=== PATIENT | female | born 1990 | race Caucasian/White ===

== ENCOUNTER → 2018-12-07 11:38 | Outpatient (CLI) | payer OTHER, SELFPAY ==
[2018-12-07 11:18] VITALS: BMI 25.7
[2018-12-07 12:35] LABS: hCG Titer Quant., Serum 94 mIU/mL (<9 non-preg)
--- OUTSIDE RECORDS SUMMARY | 2019-02-08 22:56 | XMS RPT_ITS ---
:1990 Author Organization OHIP Support Name Relationship Address Phone JOCELINEKRISTYN Unavailable [address] + [place] [address] [facility], [address] + [place] [address] DR FREITAS Unavailable [address] + [place] [address] KRISTYN CAR Unavailable [address] + [place] [address] [facility], [address] + [place] [address] DR FREITAS Unavailable [address] + [place] [address] KRISTYN CAR Unavailable [address] + [place] [address] [facility], [address] + [place] [address] DR FREITAS Unavailable [address] + [place] [address] KRISTYN CAR Unavailable [address] + [place] [address] [facility], [facility] Unavailable [address] + [place] [address] DR FREITAS Unavailable [address] + [place] [address] KRISTYN CAR Unavailable [address] + [place] [address] [facility], CARLOS Unavailable [address] + [place] [address] DR FREITAS Unavailable [address] + [place] [address] [facility] Un[address] [place] [address] [place] [address] KRISTYN CAR Unavailable [address] + [place] [address] [facility] Unavailable [address] + [place] [address] [facility] Un[address]- [place] [address] KRISTYN CAR Unavailable [address] + [place] [address] [facility], [facility] Unavailable [address] + [place] [address] Care Team Providers Name Role Phone Adeel, Rossy Attending Unavailable [place], Jericho Referring Unavailable Adeel, Rossy Attending Unavailable Hesperia, Rossy Referring Unavailable [place], Jericho Primary Care Unavailable Chris Joseph Attending Unavailable [place], Jericho Referring Unavailable [place], Jericho Primary Care Unavailable [place], Rossy Attending Unavailable Adeel, Rossy Referring Unavailable [place], Jericho Primary Care Unavailable Marcanthony, Kristi Attending Unavailable Marcanthony, Kristi Referring Unavailable [place], Jericho Primary Care Unavailable [place], Rossy Attending Unavailable [place], Rossy Referring Unavailable [place], Jericho Primary Care Unavailable Marcanthony, Kristi Attending Unavailable [place], Jericho Referring Unavailable [place], Jericho Primary Care Unavailable PROBLEMS PROBLEMS No Problem Records FoundPROCEDURES PROCEDURES No Procedure Records FoundRESULTS RESULTS CBC W/DIFF, AUTOMATED Collected: 12/11/2018 Status: F Source: [place] 11:36 AM [facility] RE[facility] TYPE CODE TESTS RESULT OUT OF RANGE REFERENCE UNITS LAB L100.1000 4.4-11.0 K/mm3 Normal WBC 7.0 LAB L100.1200 4.2-5.4 M/mm3 Normal RBC 4.44 LAB L100.1300 12.0-15.0 g/dl Normal HGB 13.6 LAB L100.1400 37-47 % Normal HCT 41.4 LAB L100.1500 81-99 fL Normal MCV 93.2 LAB L100.1600 27.0-32.0 pg Normal MCH 30.6 LAB L100.1700 32-36 g/gl Normal MCHC 32.9 LAB L100.1810 11.6-14.6 % Normal RDW CV 12.8 LAB L100.1820 35.1-43.9 fl Normal RDW SD 43.6 LAB L100.1900 150-450 K/mm3 Normal PLT 256 LAB L100.2000 6.2-12.0 fl Normal MPV 10.3 LAB L100.2100 47-70 % Normal NEUT% 59.1 LAB L100.2200 19-41 % Normal LY% 30.4 LAB L100.2300 0-10 % Normal MONO% 6.8 LAB L100.2400 0-5 % Normal EO% 3.3 LAB L100.2500 0-1 % Normal BASO% 0.3 LAB L100.2550 0.0-0.9 % Normal IM GRAN % 0.100 Result Comment: IG% - Immature Granulocytes (promyelocytes, myelocytes and metamyelocytes) > 1% indicates that a LEFT SHIFT is Present. LAB L100.2620 2.0-7.7 X10 3/uL Normal Absolute Neut 4.2 LAB L100.2720 0.83-4.51 X10 3/ul Normal Absolute Lymph 2.14 Performed By: #### L100.0100 #### [facility] [address] [place], [address] HCG TITER QUANT., Collected: 12/11/2018 Status: F Source: [place] 11:36 AM [facility] REPOSITORY TYPE CODE TESTS RESULT OUT OF RANGE REFERENCE UNITS LAB L700.8000 <9 non-preg mIU/mL High HCG 96 QUANT. Performed By: #### L700.8000 #### [facility] [place], [address] TYPE AND SCREEN Collected: 12/11/2018 Status: F Source: [place] 11:36 AM [facility] REPOSITORY Order Comment: Reason for Type AND Screen/Red Cells: TYPE CODE TESTS RESULT OUT OF RANGE REFERENCE UNITS LAB B10.0800 A Normal BLOOD TYPE GEL POSITIVE LAB B100.4000 Normal Antibody NEGATIVE Screen Performed By: #### B101.7450 #### [facility] [place], [address] TRANSVAGINAL W/PREG US Observed: 12/10/2018 Status: F Source: [place] 1:26 PM [facility] REPOSITORY [facility] Imaging Services [address] [place] [address] Transvaginal w/Preg US MR#: [id number] Acct: [id number] Name: TONO CAR Rep #: [id number] : 1990 F 28 From: Stephen Pedro MD PCP: Jericho Chen MD Status: REG CLI Study: Transvaginal w/Preg US Date of Exam: 12/10/18 Exam# [id number] Ordering Dr: Rossy Denis NP-Fabiana STUDY: FIRST TRIMESTER OBSTETRICAL ULTRASOUND REASON FOR EXAM: Female, 28 years old. Bleeding. LMP: Unknown. TECHNIQUE: Transabdominal and Transvaginal TECHNICAL QUALITY: Adequate. PRIOR ULTRASOUND: None. FINDINGS: There is no demonstrated intrauterine gestational sac. There is no demonstrated yolk sac. The placenta is non-visualized. There is no demonstrated embryo ( pole The uterus measures 4.7 cm x 4.8 cm x 2.6 cm. The endometrium is fluid distended and measures 6 mm. No gestational sac is seen. Low-level echoes are seen within the endometrium.. There is no demonstrated uterine fibroid. The cervix is closed. The right ovary measures 1.5 cm x 1.8 cm x 1.0 cm. A dominant follicle is seen within measuring 9.2 mm. There is no visualized right adnexal mass or complex lesion. The left ovary measures 2.6 cm x 1.8 cm x 1.0 cm. There is no left ovarian cyst. There is no visualized left adnexal mass or complex lesion. There is no fluid in the cul de sac. US/Transvaginal w/Preg US IMPRESSION: No intrauterine gestational sac is seen. Findings suggestive of spontaneous with residual fluid and debris in the endometrial cavity. Electronically Signed: Stephen Pedro MD at 14:24 EST , Service support , CC: SANDRITA Denis; Jericho Chen MD Search Engine Optimization Consultant: Signed HCG TITER QUANT., Collected: 12/09/2018 Status: F Source: [place] SERUM 11:40 AM [facility] REPOSITORY TYPE CODE TESTS RESULT OUT OF RANGE REFERENCE UNITS LAB L700.8000 <9 non-preg mIU/mL High HCG 113 QUANT. Performed By: #### L700.8000 #### [facility] [address] [place], [address] HCG TITER QUANT., Collected: 12/07/2018 Status: F Source: [place] SERUM 11:44 AM [facility] REPOSITORY TYPE CODE TESTS RESULT OUT OF RANGE REFERENCE UNITS LAB L700.8000 <9 non-preg mIU/mL High HCG 94 QUANT. Performed By: #### L700.8000 #### [facility] [address] 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 [place] [address] OFFICE VISIT Date of Service: 12/07/18 MR#: [id number] Acct: [id number] Name: TONO CAR Rep #: [id number] : 1990 Provider: SANDRITA Denis Age/Sex: 28/F [place] [facility] [place] [place] Signed Intake Vital Signs12/07/18 Height 5 ft 3 in 12/07/18 Weight: 145 lb 8 oz 12/07/18 Body Mass Index (BMI) 25.7 12/07/18 Blood Pressure 124/70 H Intake Visit Reasons: CRAMPING/passed a clot Chief Complaint: Irregular bleeding, cramping Professor Of Rhetoric Required: No Is patient in pain?: No Allergies morphine Adverse Reaction (Verified 12/07/18 11:19) Other Medications etonogestrel-ethinyl estradiol 0.12 mg -0.015 mg/24 hr vaginal ring 1 vag ring VAGINAL Q4W #3 ea 07/16/18 [Rx Confirmed 12/07/18] Is last menstrual period known: No Post menopausal: No Patient : No : No PFSH Family History Grandmother Breast cancer Social History Smoking Status: Never smoker alcohol intake: current alcohol intake frequency: a few times a month Alcohol type: beer details: socially substance use type: does not use caffeine: Yes what type of physical activity do you participate in: weight training frequency: 3-4 times per week seatbelt use: always do you feel safe at home: Yes 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 Looked up online and feels was desidual cast. States normal menses today/changing pad every 3 hours. She is on nuvaring and started menses 12/04. She was trying to do continuous cycling but has break through bleeding. Pregancy History 0 Elective abortions Hx Para Spontaneous abortions ROS Const Constitutional: Reports system reviewed and no additional complaints, except as docu GI GI: Denies abdominal pain or change in bowel habits : Reports as per HPI Exam Const General: cooperative, no acute distress Nutritional Appearance: average body habitus Orientation: oriented x3 Neck Neck: normal visual inspection Resp Effort AND Inspection: normal respiratory effort Skin General: no rashes or lesions noted Assessment AND Plan Problems 1. Irregular menses N92.6 Plan Deferred pelvic exam since menses very light Urine HCG with very faint positive line, will check HCG quant. Will call her with results later today. Call if increased bleeding. 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 [place] [address] OFFICE VISIT Date of Service: 02/06/18 MR#: [id number] Acct: [id number] Name: TONO CAR Rep #: [id number] : 1990 Provider: Kristi Oseguera MD Age/Sex: 28/F [place] [facility] [place]: S[place] Intake Vital Signs02/06/18 Height 5 ft 3 in 02/06/18 Weight: 153 lb 2 oz 02/06/18 Body Mass Index (BMI) 27.1 02/06/18 Blood Pressure 114/76 Intake Visit Reasons: ANNUAL JV PT Professor Of Rhetoric Required: No Is patient in pain?: No Allergies morphine Adverse Reaction (Verified 02/06/18 09:18) Other Medications omega 2-rbl-wrg-fish oil 1,000 mg (120 mg-180 mg) capsule cap PO 01/14/18 [History Confirmed 02/06/18] vitamin,calcium,qhgpbqhk-oabw-lgjkr acid tablet 1 tab PO QDAY 01/14/18 [History Confirmed 02/06/18] Is last menstrual period known: Yes Last Menstral Period: 01/26/18 Post menopausal: No Patient : No : No PFSH Family History Grandmother Breast cancer Social History Smoking Status: Never smoker alcohol intake: current alcohol intake frequency: a few times a month Alcohol type: beer details: socially substance use type: does not use caffeine: Yes what type of physical activity do you participate in: weight training frequency: 3-4 times per week seatbelt use: always do you feel safe at home: Yes 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 Last PAP: last year History of abnormal PAP: no off control since august Female Reproductive History Last Menstral Period: 01/26/18 Cycle Length: 21-35 Bleeding Duration: 5 Control Method: none associated symptoms: none Questions: Metorrhagia: No, Sexually active: Yes, Dyspareunia: No, PCB: No Menopausal Symptoms: No hot flashes, No night sweats, No weight change, No mood changes, No difficulty concentrating, No sleep problems, No change in libido ROS Const Constitutional: Reports as per HPI; denies poor appetite, fatigue, increased appetite, weight gain, weight loss or night sweats Cardio Card: Denies chest pain Resp Resp: Denies dyspnea or cough GI GI: Reports as per HPI; denies bloating, abdominal pain, constipation, vomiting or nausea : Reports as per HPI and other; denies blood in urine, vaginal odor, vaginal itching, vaginal dryness, vaginal discharge, urinary urgency, urinary incontinence, urinary frequency, pelvic pain, painful urination, difficulty urinating, prolapse symptoms, nipple discharge or hot flashes Skin Skin/Breast: Denies breast pain, breast skin changes, nipple discharge, breast lump or changing lesions Psych Psych: Denies difficulty concentrating or change in sex drive Exam Const General: cooperative, healthy appearing, comfortable, no acute distress, well developed, well groomed [facility] Head: normal to inspection, normocephalic Ears: hearing grossly normal bilaterally, external ears normal Nose: external nose normal Face and sinus: normal facial exam Neck Neck: normal visual inspection, full ROM, no lymphadenopathy Thyroid: thyroid normal Chest Chest palpation AND inspection: normal inspection of the chest Breast inspection: normal inspection of the breasts, normal inspection of the axillae Breast palpation: normal palpation of the breasts, normal palpation of the axillae, no axillary lymphadenopathy Resp Effort AND Inspection: normal respiratory effort GI Inspection: normal to inspection, non-distended Palpation: no guarding, soft, no hepatosplenomegaly General: bladder normal to palpation External Female Exam: normal external appearance, normal appearance of the urethra, no lesions Urethra: normal appearance of the urethra, normal palpation Speculum Exam - Vagina: normal appearance of the vagina, normal vaginal discharge Speculum Exam - Cervix: normal appearance of the cervix, no cervical discharge, no lesions, nontender Bimanual Exam- Vagina AND Uterus: No cervical tenderness, normal bimanual exam, uterine size normal, bladder normal to palpation, uterine mobility normal, uterine consistency normal, uterus non-tender, no cervical motion tenderness Bimanual Exam- Adnexa, other: normal adnexae, no adnexal masses, adnexae non-tender Skin General: no rashes or lesions noted Neuro General: alert, moves all extremities, no focal motor deficits Extrem General: no pedal edema, normal to inspection Psych Appearance: grossly normal Mental Status: mental status grossly normal Affect: normal affect Speech and Movement: speech and movement normal Attitude: cooperative Assessment AND Plan Problems 1. Encounter for gynecological examination without abnormal finding Z01.419 Plan Cervical cancer screening: up to date Breast cancer screening: clinical STD prevention and contraceptive options including their risks, benefits, and alternatives were reviewed with the patient and she chooses: none Encouraged maintenance of a healthy weight and active lifestyle and handout given. Calcium/vitamin D recommendations provided. Annual exam handout including recommendations for good health guidelines and basic screening information given. Problem list up to date, see problem list details for any additional plan information. follow up in one year for annual health maintenance exam or sooner if needed. Coding Level of Care Code Off vis,new,prev 18-39yrs Diagnoses Encounter for gynecological examination without abnormal finding Z01.419 Gynecological examination findings: abnormal findings ABSENT 02/08/182201 <Electronically signed by Kristi Oseguera MD> Date Kristi Oseguera MD Cosigner Signature: Date (if applicable) CC: URGENT CARE VISIT Observed: 01/14/2018 Status: F Source: [place] REPORT 8:53 AM [facility] Now [address] [id number] OFFICE VISIT Date of Service: 01/14/18 MR#: [id number] Acct: [id number] Name: TONO CAR Rep #: [id number] : 1990 Provider: Chris ESPINOZA Age/Sex: 27/F Location: [facility] [place] Status: Signed Intake Vital Signs01/14/18 Height 5 ft 3 in Intake Visit Reasons: SINUS/HEAD COLD Chief Complaint: Nasal congestion and postnasal drip Is patient in pain?: No Allergies morphine Adverse Reaction (Verified 01/14/18 06:54) Other Medications omega 3-nbp-vfr-fish oil 1,000 mg (120 mg-180 mg) capsule cap PO 01/14/18 [History Confirmed 01/14/18] vitamin,calcium,meawnexe-mpau-akhkc acid tablet 1 tab PO QDAY 01/14/18 [History Confirmed 01/14/18] PFS Social History Smoking Status: Never smoker alcohol intake: current alcohol intake frequency: a few times a month Alcohol type: beer HPI HPI Chief Complaint: Nasal congestion and postnasal drip Details: TONO CAR, is a 27 F who presents to the office today for initial evaluation approximately 3 day history of progressively worsening postnasal drip and nasal congestion and new onset cough over the last 24 hours. Patient notes no complaints of fever, chills, sweats, rash, chest pain/shortness of breath. She notes she feels that her cough is from irritation due to postnasal drainage. She has when she blows her nose is watery clear. She notes over the counter DayQuil relieves her symptoms minimally. She notes no aggravating factors. She notes no other associated symptoms she is non-smoker. ROS Const Constitutional: No excessive sweating, abnormal sleep pattern, chills, fever(s), night sweats or body ache Eyes Eyes: No change in vision ENT ENT: Positive for post nasal drip and nasal congestion; no abnormal hearing, ear pain, ear discharge, ear pressure, hearing loss, sinus pressure or sore throat Resp Respiratory: Positive for cough Cough: Yes non-productive; no chest congestion Cardio Cardiology: No excessive sweating, chest pain at rest, chest pain with exertion, shortness of breath, dyspnea on exertion, irregular heart rhythm, generalized swelling or leg pain with exertion Gastro GI: No abdominal pain, change in stool character or change in bowel habits Musc Musculoskeletal: No joint pain, back pain or limited range of motion Skin Skin: No change in hair or sores Neuro Neurology: No abnormal hearing, abnormal speech or abnormal movements Psych Psychiatric: No abnormal sleep pattern Endo Endocrine: No excessive sweating, change in body appearance, cold intolerance or heat intolerance Aller/Imm Allergy/Immunologic: No food intolerance Solomon/Lymp Hematologic/Lymphatic: No easy bruising Exam Const General: cooperative, healthy appearing, no acute distress, comfortable Nutritional Appearance: average body habitus Orientation: alert, awake, oriented x3 HENPA Head: normal to inspection Ears: hearing grossly normal bilaterally, external ears normal, TM's normal bilaterally, EAC's normal Nose: external nose normal, nares normal, septum normal, nasal discharge clear Face and sinus: normal facial exam, sinuses nontender Mouth: tongue normal, lip normal, oropharynx normal, oral mucosae normal Teeth and gingiva: dentition normal, gingiva normal Throat: uvula midline, tonsils normal, posterior oropharynx normal Eyes General: appearance normal, both eyes and all related structures Neck Neck: normal visual inspection, full ROM, no lymphadenopathy, no meningeal signs, supple Neck mass: No Thyroid: thyroid normal Lymphatic: no lymphadenopathy noted Chest Chest palpation AND inspection: normal inspection of the chest Resp Effort AND Inspection: normal respiratory effort, able to speak in complete sentences, symmetric chest movement, no cough (No unsolicited cough appreciated during today's exam.) Auscultation: Bilateral: Clear to Auscultation Cardio Palpation: normal PMI Rate: regular rate Rhythm: regular rhythm Heart Sounds: S1 normal, S2 normal, no gallops, no murmurs, no rubs Pulses: radial pulses present GI Inspection: normal to inspection Skin General: no rashes or lesions noted Neuro General: alert, awake, oriented x3, gait normal Cognition: normal cognition Speech: speech normal Gait: normal gait Motor: muscle tone normal throughout Sensory Exam: no sensory deficits noted Extrem General: normal to inspection Psych Appearance: grossly normal Mental Status: mental status grossly normal Mood: congruent mood Affect: normal affect Speech and Movement: speech and movement normal Attitude: cooperative Thought Process: normal Thought Content: normal Judgment: judgment good Assessment AND Plan Problems 1. URI (upper respiratory infection) J06.9 Plan Reviewed today's examination findings with patient in office today. Clear fluids, rest, Advil/Tylenol/Claritin-D lujo-lde-xeyknpc as needed for symptomatic relief. Follow-up with PCP in 5 7 days should symptoms not improve, sooner should symptoms worsen or any other concerns develop. Patient states acknowledging understanding all the above. This note was generated with [employer] software. It may contain incorrect words, spelling, and punctuation that were not noted in checking the note before signing. Medications Discontinued: Coding Level of Care Code Off vis,new,level 3 Diagnoses URI (upper respiratory infection) J06.9 01/14/18 0853 <Electronically signed by Chris ESPINOZA> Date Chris ESPINOZA Cosigner Signature: Date (if applicable) CC: ALLERGIES ALLERGIES DATE TYPE / CODE NAME / CODE REACTION SEVERITY SOURCE 12/07/2018 Drug morphine/F00 Other Unknown Alyssa [facility] Allergy/4160 [id number]([facility] [address](SNOMED RM) Repository CT) ENCOUNTERS ENCOUNTERS ADMIT/DISCHARGE ACCOUNT ADMITTING ENCOUNTER LOCATION SOURCE NUMBER CLASS 12/11/2018 [id number] Ambulatory Alyssa Alyssa 9 [facility] ing:PAVLAB Repository 12/10/2018 [id number] Ambulatory [place] Alyssa 0 [facility] ing:OPUS Repository 12/09/2018 [id number] Ambulatory Alyssa [place] 6 [facility] ing:PAVLAB Repository 12/07/2018 [id number] Ambulatory [place] Alyssa 5 [facility] ing:PAVLAB Repository 12/07/2018/ [id number] Ambulatory BMSBuilding:B [place] 9 4 [facility] Repository 02/06/2018/ [id number] Ambulatory BMSBuilding:B [place] 8 2 [facility] Repository 01/14/2018/ [id number] Ambulatory BMSBuilding:B [place] 8 2 [facility] Repository PAYERS PAYERS ENCOUNTER GUARANTOR PAYER SUBSCRIBER SOURCE 12/11/2018 KRISTYN Dent Primary KRISTYN [id number] Insurance:MEDICAL COCHRELLDOB[facility] [id number] [address]Xha: Number: Repository [id number] (HP) Date:[id number] [address] [address]SB: 12/11/2018 Secondary NOT GIVENUNK Alyssa Insurance:SELF PAY [facility] Number: Effective Repository Date:2018-12-11 12/10/2018 ROSS D Primary ROSS D Alyssa [id number] Insurance:MEDICAL COCHRELLDOB: [place] [address]Tel: Number: Repository [id number] (HP) Date:3135-05-38KO [place] [id number]: 12/10/2018 Secondary NOT GIVENUNK Alyssa Insurance:SELF PAY [facility] Number: Effective Repository Date:2018-12-09 12/09/2018 ROSS D Primary ROSS D Alyssa [id number] Insurance:MEDICAL COCHRELLDOB: [place] [address]Tel: Number: Repository [id number] (HP) Date:[id number] [address] [address]WT: 12/09/2018 Secondary NOT GIVENUNK [place] Insurance:SELF PAY [facility] Number: Effective Repository Date:2018-12-09 12/07/2018 ROSS D Primary ROSS D Alyssa [id number] Insurance:MEDICAL COCHRELLDOB: [place] [address]Tel: Number: Repository [id number] (HP) Date:4583-08-20KH [address] [address]LI: 12/07/2018 Secondary NOT GIVENUNK Alyssa Insurance:SELF PAY [facility] Number: Effective Repository Date:2018-12-07 12/07/2018 Ross D Primary Ross D [place] [id number] Insurance:MEDICAL CochrellDOB: [address] [address]Ycq: Number: Repository [id number] (HP) Date:6458-19-78PI [address] [address]ZZ: 12/07/2018 Secondary NOT GIVENUNK Alyssa Insurance:SELF PAY [facility] Number: Effective Repository Date:2018-12-07 02/06/2018 Ross D Primary Ross D Homer [id number] Insurance:MEDICAL CochrellDOB: [address] [address]Wzc: Number: Repository [id number] (HP) Date:[id number] [address] [address]PE: 02/06/2018 Secondary NOT GIVENUNK Alyssa Insurance:SELF PAY [facility] Number: Effective Repository Date:2018-02-06 01/14/2018 Ross D Primary Ross D Alyssa [id number] Insurance:MEDICAL CochrellDOB: [address] [address]Ihw: Number: Repository [id number] (HP) Date:[id number] [address] [address]DD: 01/14/2018 Secondary NOT GIVENUNK Alyssa Insurance:SELF PAY [facility] Number: Effective Repository Date:2018-01-14
== END ==
PROVIDERS: Referring Provider Nurse Practitioner Women's Health; Visit Provider Nurse Practitioner Women's Health
DX: O20.9 Hemorrhage in early pregnancy, unspecified (principal); Z3A.00 Weeks of gestation of pregnancy not specified
CPT/HCPCS: 36415; 84702

== ENCOUNTER → 2018-12-09 11:36 | Outpatient (CLI) | payer OTHER, SELFPAY ==
[2018-12-07 11:18] VITALS: BMI 25.7
[2018-12-09 12:42] LABS: hCG Titer Quant., Serum 113 mIU/mL (<9 non-preg)
--- OUTSIDE RECORDS SUMMARY | 2019-02-10 09:32 | XMS RPT_ITS ---
:1990 Author Organization OHIP Support Name Relationship Address Phone JOCELINEKRISTYN Unavailable [address] + [place] [address] [facility], [address] + [place] [address] DR FREITAS Unavailable [address] + [place] [address] KRISTYN CAR Unavailable [address] + [place] [address] [facility], [address] + [place] [address] DR FREITAS Unavailable [address] + [place] [address] KRISTYN CAR Unavailable [address] + [place] [address] [facility], [address] + [place] [address] DR FREITAS Unavailable [address] + [place] [address] KRISTYN CAR Unavailable [address] + [place] [address] [facility], NOV Unavailable [address] + [place] [address] DR FREITAS Unavailable [address] + [place] [address] KRISTYN CAR Unavailable [address] + [place] [address] [facility], CARLOS Unavailable [address] + [place] [address] DR FREITAS Unavailable [address] + [place] [address] [facility] Un[address]- [place] [address] KRISTYN CAR Unavailable [address] + [place] [address] [facility], [facility] Unavailable [address] + [place] [address] [facility] Un[address]- [place] [address] KRISTYN CAR Unavailable [address] + [place] [address] [facility], [facility] Unavailable [address] + [place] [address] Care Team Providers Name Role Phone Rossy Denis Attending Unavailable [place], Rossy Referring Unavailable [place], Jericho Primary Care Unavailable Adeel, Rossy Attending Unavailable Adeel, Rossy Referring Unavailable [place], Jericho Primary Care Unavailable Marcanthony, Kristi Attending Unavailable [place], Jericho Referring Unavailable [place], Jericho Primary Care Unavailable Chris Joseph Attending Unavailable [place], Jer[place]o Referring Unavailable [place], Jericho Primary Care Unavailable Marcanthony, Kristi Attending Unavailable Marcanthony, Kristi Referring Unavailable [place], Jericho Primary Care Unavailable [place], Rossy Attending Unavailable Adeel, Rossy Referring Unavailable [place], Jericho Primary Care Unavailable Adeel, Rossy Attending Unavailable [place], Jericho Referring Unavailable PROBLEMS PROBLEMS No Problem Records FoundPROCEDURES PROCEDURES No Procedure Records FoundRESULTS RESULTS CBC W/DIFF, AUTOMATED Collected: 12/11/2018 Status: F Source: [place] 11:36 AM [facility] REPOSITORY TYPE CODE TESTS RESULT OUT OF [...] Lymph 2.14 Performed By: #### L100.0100 #### [facility] [address] [place], [address] HCG TITER QUANT., Collected: 12/11/2018 Status: F Source: [place] 11:36 AM [facility] REPOSITORY TYPE CODE TESTS RESULT OUT OF RANGE REFERENCE UNITS LAB L700.8000 <9 non-preg mIU/mL High HCG 96 QUANT. Performed By: #### L700.8000 #### [facility] [place], [address] TYPE AND SCREEN Collected: 12/11/2018 Status: F Source: [place] 11:36 AM [facility] REPOSITORY Order Comment: Reason for Type AND Screen/Red Cells: TYPE CODE TESTS RESULT OUT OF RANGE REFERENCE UNITS LAB B10.0800 A Normal BLOOD TYPE GEL POSITIVE LAB B100.4000 Normal Antibody NEGATIVE Screen Performed By: #### B101.7450 #### [facility] [place], [address] TRANSVAGINAL W/PREG US Observed: 12/10/2018 Status: F Source: [place] 1:26 PM [facility] REPOSITORY [facility] Imaging Services [address] [place] [address] Transvaginal w/Preg US MR#: [id number] Acct: [id number] Name: TONO CAR Rep #: [id number] : 1990 F 28 From: Stephen Pedro MD PCP: Jericho Chen MD Status: REG CLI Study: Transvaginal w/Preg US Date of Exam: 12/10/18 Exam# [id number] Ordering Dr: Rossy Denis NP-Fabiana STUDY: FIRST [...] , CC: SANDRITA Denis; Jer[place]o Chen MD 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 Performed By: #### L700.8000 #### [facility] [address] [place], [address] HCG TITER QUANT., Collected: 12/07/2018 Status: F Source: [place] SERUM 11:44 AM [facility] REPOSITORY TYPE CODE TESTS RESULT OUT OF RANGE REFERENCE UNITS LAB L700.8000 <9 non-preg mIU/mL High HCG 94 QUANT. Performed By: #### L700.8000 #### [facility] [address] 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 [place] [address] OFFICE VISIT Date of Service: 02/06/18 MR#: [id number] Acct: [id number] Name: TONO CAR Rep #: [id number] : 1990 Provider: Kristi Oseguera MD Age/Sex: 28/F [place] [facility] [place]: Signed Intake Vital Signs02/06/18 Height 5 ft 3 in 02/06/18 Weight: 153 lb 2 oz 02/06/18 Body Mass Index (BMI) 27.1 02/06/18 Blood Pressure 114/76 Intake Visit Reasons: ANNUAL JV PT Silo Operator Required: No Is patient in pain?: No Allergies morphine Adverse Reaction (Verified 02/06/18 09:18) Other Medications omega 4-npb-glb-fish oil 1,000 mg (120 mg-180 mg) capsule cap PO 01/14/18 [History Confirmed 02/06/18] vitamin,calcium,vkdcvgdr-hcuo-qpudp acid tablet 1 tab PO QDAY 01/14/18 [...] home: Yes 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 0 [...] no acute distress, well developed, well groomed [facility] Head: normal to inspection, normocephalic Ears: [...] Status: F Source: [place] REPORT 8:53 AM [facility] Now [address] [address] OFFICE VISIT Date of Service: 01/14/18 MR#: [id number] Acct: [id number] Name: TONO CAR Rep #: [id number] : 1990 Provider: Chris ESPINOZA Age/Sex: 27/F Location[place] [facility] [place] Status: Signed Intake Vital Signs01/14/18 Height 5 ft 3 in Intake Visit Reasons: SINUS/HEAD COLD Chief Complaint: Nasal congestion and postnasal drip Is patient in pain?: No Allergies morphine Adverse Reaction (Verified 01/14/18 06:54) Other Medications omega 6-uwl-olm-fish oil 1,000 mg (120 mg-180 mg) capsule cap PO 01/14/18 [History Confirmed 01/14/18] vitamin,calcium,njwjdfsz-xudi-zsmws acid tablet 1 tab PO QDAY 01/14/18 [...] body habitus Orientation: alert, awake, oriented x3 HENWV Head: normal to inspection Ears: hearing grossly [...] in office today. Clear fluids, rest, Advil/Tylenol/Claritin-D kpni-zwx-upjzdcm as needed for symptomatic relief. Follow-up with PCP in 5 7 days should symptoms not improve, sooner should symptoms worsen or any other concerns develop. Patient states acknowledging understanding all the above. This note was generated with Rev[employer]TuPrec[employer].comation software. It may contain incorrect words, spelling, [...] SOURCE 12/07/2018 Drug morphine/F00 Other Unknown Alyssa [facility] Allergy/4160 [id number]([facility] [address](SNOMED RM) Repository CT) ENCOUNTERS ENCOUNTERS ADMIT/DISCHARGE ACCOUNT ADMITTING ENCOUNTER LOCATION SOURCE NUMBER CLASS 12/11/2018 [id number] Ambulatory Alyssa Alyssa 9 [facility] ing:PAVLAB Repository 12/10/2018 [id number] Ambulatory [place] Alyssa 0 [facility] ing:OPUS Repository 12/09/2018 [id number] Ambulatory Alyssa [place] 6 [facility] ing:PAVLAB Repository 12/07/2018 [id number] Ambulatory [place] Alyssa 5 [facility] ing:PAVLAB Repository 12/07/2018/ [id number] Ambulatory BMSBuilding:B [place] 9 4 [facility] Repository 02/06/2018/ [id number] Ambulatory BMSBuilding:B [place] 8 2 [facility] Repository 01/14/2018/ [id number] Ambulatory BMSBuilding:B [place] 8 2 [facility] Repository PAYERS PAYERS ENCOUNTER GUARANTOR PAYER SUBSCRIBER SOURCE 12/11/2018 KRISTYN Dent Primary KRISTYN [id number] Insurance:MEDICAL COCHRELLDOB: [facility] 6525[address], [place] [address]Gfc: Number: Repository [id number] (HP) Date:0376-91-16VK [address] [address]YI: 12/11/2018 Secondary NOT GIVENUNK Alyssa Insurance:SELF PAY [facility] Number: Effective Repository Date:2018-12-11 12/10/2018 ROSS D Primary ROSS D Alyssa [id number] Insurance:MEDICAL COCHRELLDOB: [place] [address]Tel: Number: Repository [id number] (HP) Date:0936-25-62ID [place] [id number]: 12/10/2018 Secondary NOT GIVENUNK Alyssa Insurance:SELF PAY [facility] Number: Effective Repository Date:2018-12-09 12/09/2018 ROSS D Primary ROSS D Alyssa [id number] Insurance:MEDICAL COCHRELLDOB: [place] [address]Tel: Number: Repository [id number] (HP) Date:7786-53-05VV [address] [address]HF: 12/09/2018 Secondary NOT GIVENUNK [place] Insurance:SELF PAY [facility] Number: Effective Repository Date:2018-12-09 12/07/2018 ROSS D Primary ROSS D Alyssa [id number] Insurance:MEDICAL COCHRELLDOB: [place] [address]Tel: Number: Repository [id number] (HP) Date:7322-39-15GW [address] [address]KU: 12/07/2018 Secondary NOT GIVENUNK Alyssa Insurance:SELF PAY [facility] Number: Effective Repository Date:2018-12-07 12/07/2018 Ross D Primary Ross D [place] [id number] Insurance:MEDICAL CochrellDOB: [address] [address]Qys: Number: Repository [id number] (HP) Date:6363-27-37OI [address] [address]EA: 12/07/2018 Secondary NOT GIVENUNK Alyssa Insurance:SELF PAY [facility] Number: Effective Repository Date:2018-12-07 02/06/2018 Ross D Primary Ross D [place] [id number] Insurance:MEDICAL CochrellDOB: [address] [address]Crc: Number: Repository [id number] (HP) Date:5517-92-70WD [address] [address]AK: 02/06/2018 Secondary NOT GIVENUNK Alyssa Insurance:SELF PAY [facility] Number: Effective Repository Date:2018-02-06 01/14/2018 Ross D Primary Ross D Alyssa [id number] Insurance:MEDICAL CochrellDOB: [address] [address]Nfb: Number: Repository [id number] (HP) Date:6047-33-34XA [address] [address]TY: 01/14/2018 Secondary NOT GIVENUNK Alyssa Insurance:SELF PAY [facility] Number: Effective Repository Date:2018-01-14
== END ==
PROVIDERS: Referring Provider Nurse Practitioner Women's Health; Visit Provider Nurse Practitioner Women's Health
DX: O20.9 Hemorrhage in early pregnancy, unspecified (principal); Z3A.00 Weeks of gestation of pregnancy not specified
CPT/HCPCS: 36415; 84702

== ENCOUNTER → 2018-12-10 13:24 | Outpatient (CLI) | payer OTHER, SELFPAY ==
[2018-12-07 11:18] VITALS: BMI 25.7
--- NOTE | 2018-12-10 13:26 | US_ITS ---
STUDY: FIRST TRIMESTER OBSTETRICAL ULTRASOUND REASON FOR EXAM: Female, 28 years old. Bleeding. LMP: Unknown. TECHNIQUE: Transabdominal and Transvaginal TECHNICAL QUALITY: Adequate. PRIOR ULTRASOUND: None. FINDINGS: There is no demonstrated intrauterine gestational sac. There is no demonstrated yolk sac. The placenta is non-visualized. There is no demonstrated embryo ( pole The uterus measures 4.7 cm x 4.8 cm x 2.6 cm. The endometrium is fluid distended and measures 6 mm. No gestational sac is seen. Low-level echoes are seen within the endometrium.. There is no demonstrated uterine fibroid. The cervix is closed. The right ovary measures 1.5 cm x 1.8 cm x 1.0 cm. A dominant follicle is seen within measuring 9.2 mm. There is no visualized right adnexal mass or complex lesion. The left ovary measures 2.6 cm x 1.8 cm x 1.0 cm. There is no left ovarian cyst. There is no visualized left adnexal mass or complex lesion. There is no fluid in the cul de sac. US/Transvaginal w/Preg US IMPRESSION: No intrauterine gestational sac is seen. Findings suggestive of spontaneous with residual fluid and debris in the endometrial cavity. Electronically Signed: Stephen Pedro MD at 14:24 EST , Service support ,
== END ==
PROVIDERS: Referring Provider Obstetrics & Gynecology; Visit Provider Obstetrics & Gynecology
DX: R58 Hemorrhage, not elsewhere classified (principal)
CPT/HCPCS: 76817

== ENCOUNTER → 2018-12-11 11:34 | Outpatient (CLI) | payer OTHER, SELFPAY ==
[2018-12-07 11:18] VITALS: BMI 25.7
[2018-12-11 11:45] LABS: Absolute Lymphocyte Count 2.14 X10^3/ul (0.83-4.51); Absolute Neutrophil Count 4.2 X10^3/uL (2.0-7.7); Basophil# 0.02 X10^3/uL; Basophil% 0.3 % (0-1); Eosinophil# 0.23 X10^3/uL; Eosinophils% 3.3 % (0-5); Hematocrit 41.4 % (37-47); Hemoglobin 13.6 g/dl (12.0-15.0); Lymphocyte # 2.14 X10^3/ul (4.0); Lymphocyte % 30.4 % (19-41); Mean Corp Hgb Conc 32.9 g/gl (32-36); Mean Corpuscular Hgb 30.6 pg (27.0-32.0); Mean Corpuscular Volume 93.2 fL (81-99); Mean Platelet Vol. 10.3 fl (6.2-12.0); Monocyte# 0.48 X10^3/uL; Monocyte% 6.8 % (0-10); Neutrophil # 4.16 X10^3/uL (2.7-7.7); Neutrophil % 59.1 % (47-70); Platelet Count 256 K/mm3 (150-450); RBC Distribution Width CV 12.8 % (11.6-14.6); RBC Distribution Width SD 43.6 fl (35.1-43.9); Red Blood Count 4.44 M/mm3 (4.2-5.4)
[2018-12-11 11:48] LABS: POSITIVE COUNT NO; POSITIVE DIFFERENTIAL NO; POSITIVE MORPHOLOGY NO
[2018-12-11 12:36] LABS: hCG Titer Quant., Serum 96 mIU/mL (<9 non-preg)
== END ==
PROVIDERS: Referring Provider Nurse Practitioner Women's Health; Visit Provider Nurse Practitioner Women's Health
DX: O20.9 Hemorrhage in early pregnancy, unspecified (principal); Z3A.00 Weeks of gestation of pregnancy not specified
CPT/HCPCS: 36415; 84702; 85025; 86850; 86900

== ENCOUNTER → 2018-12-21 12:40 | Outpatient (CLI) | payer OTHER, SELFPAY ==
[2018-12-07 11:18] VITALS: BMI 25.7
[2018-12-21 13:39] LABS: hCG Titer Quant., Serum 67 mIU/mL (<9 non-preg)
== END ==
PROVIDERS: Obstetrics & Gynecology; Visit Provider Nurse Practitioner Women's Health
DX: Z34.90 Encounter for supervision of normal pregnancy, unspecified, unspecified trimester (principal); O03.9 Complete or unspecified spontaneous abortion without complication
CPT/HCPCS: 36415; 84702

== ENCOUNTER → 2019-11-30 13:58 | Outpatient (CLI) | payer OTHER, SELFPAY ==
[2019-11-30 10:45] VITALS: BMI 25.7
[2019-12-02 13:44] LABS: HPV APTIMA, High Risk Negative (Negative)
== END ==
PROVIDERS: Visit Provider Nurse Practitioner Women's Health
DX: Z12.4 Encounter for screening for malignant neoplasm of cervix (principal)
CPT/HCPCS: 87624; 88175; G0145

== ENCOUNTER → 2020-06-20 08:21 | Outpatient (CLI) | payer OTHER, SELFPAY ==
[2019-11-30 10:45] VITALS: BMI 25.7
[2020-06-20 09:00] LABS: hCG Titer Quant., Serum 459 mIU/mL (1-3)
== END ==
PROVIDERS: Referring Provider Nurse Practitioner Women's Health; Visit Provider Nurse Practitioner Women's Health
DX: O20.0 Threatened abortion (principal); Z3A.00 Weeks of gestation of pregnancy not specified
CPT/HCPCS: 36415; 84702

== ENCOUNTER → 2020-06-20 10:07 | Outpatient (CLI) | payer OTHER, SELFPAY ==
[2019-11-30 10:45] VITALS: BMI 25.7
--- NOTE | 2020-06-20 10:09 | US_ITS ---
STUDY: FIRST TRIMESTER OBSTETRICAL ULTRASOUND REASON FOR EXAM: Female, 30 years old BLEEDING HCG 458 + TEST LAST NIGHT LMP: 05/11/2020. TECHNIQUE: Transvaginal TECHNICAL QUALITY: Adequate. PRIOR ULTRASOUND: None. FINDINGS: There is no demonstrated intrauterine gestational sac. There is no demonstrated yolk sac. The placenta is non-visualized. There is no demonstrated embryo ( pole). The estimated gestation age (EGA) by LMP is 5 weeks, 5 days. The uterus measures 6.2 cm x 5.9 cm x 3.7 cm. There is no demonstrated uterine fibroid. The cervix is closed. The endometrium measures 10 mm. The right ovary measures 4.3 cm x 4.5 cm x 2.4 cm. There is no right ovarian cyst. There is no visualized right adnexal mass or complex lesion. The left ovary measures 2.3 cm x 2.7 cm x 1.0 cm.. There is no left ovarian cyst. There is no visualized left adnexal mass or complex lesion. There is no fluid in the cul de sac. US/Transvaginal w/Preg US IMPRESSION: No intrauterine gestation is seen. Electronically Signed: Stephen Pedro, at 14:44 EDT , Service support ,
== END ==
PROVIDERS: Referring Provider Obstetrics & Gynecology; Visit Provider Obstetrics & Gynecology
DX: O20.0 Threatened abortion (principal); Z3A.00 Weeks of gestation of pregnancy not specified
CPT/HCPCS: 76817

== ENCOUNTER → 2020-06-22 08:35 | Outpatient (CLI) | payer OTHER, SELFPAY ==
[2019-11-30 10:45] VITALS: BMI 25.7
[2020-06-22 09:08] LABS: hCG Titer Quant., Serum 314 mIU/mL (1-3)
== END ==
PROVIDERS: Referring Provider Nurse Practitioner Women's Health; Visit Provider Nurse Practitioner Women's Health
DX: O20.0 Threatened abortion (principal); Z3A.00 Weeks of gestation of pregnancy not specified
CPT/HCPCS: 36415; 84702

== ENCOUNTER → 2020-06-29 08:42 | Outpatient (CLI) | payer OTHER, SELFPAY ==
[2019-11-30 10:45] VITALS: BMI 25.7
[2020-06-29 09:44] LABS: hCG Titer Quant., Serum 1043 mIU/mL (1-3)
== END ==
PROVIDERS: Referring Provider Obstetrics & Gynecology; Visit Provider Obstetrics & Gynecology
DX: O20.0 Threatened abortion (principal); Z3A.00 Weeks of gestation of pregnancy not specified
CPT/HCPCS: 36415; 84702

== ENCOUNTER → 2020-07-01 08:48 | Outpatient (CLI) | payer OTHER, SELFPAY ==
[2020-06-29 15:03] VITALS: BMI 25.7
[2020-07-01 09:58] LABS: hCG Titer Quant., Serum 1436 mIU/mL (1-3)
== END ==
PROVIDERS: Referring Provider Obstetrics & Gynecology; Visit Provider Obstetrics & Gynecology
DX: O03.9 Complete or unspecified spontaneous abortion without complication (principal)
CPT/HCPCS: 36415; 84702

== ENCOUNTER → 2020-07-03 09:33 | Outpatient (CLI) | payer OTHER, SELFPAY ==
[2020-06-29 15:03] VITALS: BMI 25.7
[2020-07-03 11:10] LABS: hCG Titer Quant., Serum 1889 mIU/mL (1-3)
[2020-07-03 15:17] LABS: Hematocrit 39.8 % (37-47); Mean Corp Hgb Conc 32.7 g/dL (32-36); Mean Corpuscular Hgb 30.4 pg (27.0-32.0); Mean Corpuscular Volume 93.2 fL (81-99); Mean Platelet Vol. 9.9 fl (6.2-12.0); Platelet Count 269 K/mm3 (150-450); RBC Distribution Width CV 11.9 % (11.6-14.6); RBC Distribution Width SD 41.2 fl (35.1-43.9); Red Blood Count 4.27 M/mm3 (4.2-5.4); White Blood Count 8.8 K/mm3 (4.4-11.0)
[2020-07-03 15:34] LABS: ALB/GLOB Ratio 1.1 RATIO (0.9-2.4); AST(SGOT) 17 U/L (15-37); Alanine Aminotransfer ALT/SGPT 19 U/L (13-56); Albumin, Serum 3.8 g/dL (3.2-5.0); Alkaline Phosphatase 66 U/L (45-117); Anion Gap 4 (5-15); BUN 8 mg/dL (7-18); BUN/Creat Ratio 11.4 RATIO (10-20); Chloride 107 mmol/L (98-107); EST Glomerular Filtration Rate 103 mL/min (>60); Est Glom Filt Rate - Afr Amer 125 mL/min (>60); Globulin 3.6 g/dL (2.2-4.2); Glucose 85 mg/dL (74-106); Potassium 3.9 mmol/L (3.5-5.1); Protein, Total 7.4 g/dL (6.4-8.2); Sodium Level 140 mmol/L (136-145)
== END ==
PROVIDERS: Referring Provider Obstetrics & Gynecology; Visit Provider Obstetrics & Gynecology
DX: O36.80X0 Pregnancy with inconclusive fetal viability, not applicable or unspecified (principal); Z3A.00 Weeks of gestation of pregnancy not specified
CPT/HCPCS: 36415; 80053; 84702; 85027

== ENCOUNTER → 2020-07-03 10:20 | Outpatient (CLI) | payer OTHER, SELFPAY ==
[2020-06-29 15:03] VITALS: BMI 25.7
--- NOTE | 2020-07-03 10:21 | US_ITS ---
STUDY: FIRST TRIMESTER OBSTETRICAL ULTRASOUND REASON FOR EXAM: Female, 30 years old ABNORMAL RISING HCG, HCG 07/01/2020 1436 LMP: 05/11/2020 TECHNIQUE: Transabdominal and Transvaginal TECHNICAL QUALITY: Adequate. PRIOR ULTRASOUND: 06/20/2020 FINDINGS: Again, there is no sonographic visualization of an intrauterine gestational sac. However, since the previous study, there has been development of a complex mass in the right adnexal region measuring 2.3 x 1.9 x 1.5 cm with hyperemia. There is a moderate amount of free fluid and findings are concerning for developing ectopic . There is no demonstrated yolk sac. The placenta is non-visualized. The uterus measures 5.8 x 4.5 x 3.1 cm. There is no demonstrated uterine fibroid. The cervix is closed. The right ovary measures 2.5 x 2.1 x 2.2 cm. There is no right ovarian cyst. There is no visualized right adnexal mass or complex lesion. The left ovary measures 1.6 x 3.1 x 1.8 cm. There is no left ovarian cyst. There is no visualized left adnexal mass or complex lesion. There is no fluid in the cul de sac. US/Init OB < 14Wks US IMPRESSION: No demonstrated intrauterine gestation. There is development of a complex 2.3 x 1.9 x 1.5 cm right paraovarian mass with hyperemia and moderate free fluid. Findings are concerning for developing ectopic . Both ovaries visualized and show peripheral follicles Electronically Signed: Stan Rascon MD at 11:29 EDT , Service support ,
[2020-07-03 14:58] VITALS: BP 120/76; PULSE 64; RESP 16; TEMP 36.2; O2SAT 93; BMI 26.4
--- NOTE | 2020-07-03 15:30 | NURSING ---
METHOTREXATE GIVEN PER DR. SANDRA
== END ==
PROVIDERS: Referring Provider Obstetrics & Gynecology; Visit Provider Obstetrics & Gynecology
DX: O00.90 Unspecified ectopic pregnancy without intrauterine pregnancy (principal); Z3A.00 Weeks of gestation of pregnancy not specified
CPT/HCPCS: 76801; J9250

== ENCOUNTER → 2020-07-10 08:31 | Outpatient (CLI) | payer OTHER, SELFPAY ==
[2020-07-03 14:58] VITALS: BMI 26.4
[2020-07-10 09:19] LABS: hCG Titer Quant., Serum 1713 mIU/mL (1-3)
== END ==
PROVIDERS: Referring Provider Obstetrics & Gynecology; Visit Provider Obstetrics & Gynecology
DX: O00.90 Unspecified ectopic pregnancy without intrauterine pregnancy (principal); Z3A.00 Weeks of gestation of pregnancy not specified
CPT/HCPCS: 36415; 84702

== ENCOUNTER → 2020-07-12 06:13 | Outpatient (CLI) | payer OTHER, SELFPAY ==
[2020-07-03 14:58] VITALS: BMI 26.4
[2020-07-12 08:28] LABS: hCG Titer Quant., Serum 1294 mIU/mL (1-3)
== END ==
PROVIDERS: Referring Provider Obstetrics & Gynecology; Visit Provider Obstetrics & Gynecology
DX: O03.4 Incomplete spontaneous abortion without complication (principal)
CPT/HCPCS: 36415; 84702

== ENCOUNTER → 2020-07-17 10:16 | Outpatient (CLI) | payer OTHER, SELFPAY ==
[2020-07-13 10:36] VITALS: BMI 26.1
[2020-07-17 10:44] LABS: hCG Titer Quant., Serum 508 mIU/mL (1-3)
== END ==
PROVIDERS: Referring Provider Obstetrics & Gynecology; Visit Provider Obstetrics & Gynecology
DX: O03.4 Incomplete spontaneous abortion without complication (principal)
CPT/HCPCS: 36415; 84702

== ENCOUNTER → 2020-07-25 08:23 | Outpatient (CLI) | payer OTHER, SELFPAY ==
[2020-07-13 10:36] VITALS: BMI 26.1
[2020-07-25 09:35] LABS: hCG Titer Quant., Serum 102 mIU/mL (1-3)
== END ==
PROVIDERS: Referring Provider Obstetrics & Gynecology; Visit Provider Obstetrics & Gynecology
DX: O03.4 Incomplete spontaneous abortion without complication (principal)
CPT/HCPCS: 36415; 84702

== ENCOUNTER → 2020-08-01 09:03 | Outpatient (CLI) | payer OTHER, SELFPAY ==
[2020-07-13 10:36] VITALS: BMI 26.1
[2020-08-01 10:06] LABS: hCG Titer Quant., Serum 43 mIU/mL (1-3)
== END ==
PROVIDERS: Referring Provider Obstetrics & Gynecology; Visit Provider Obstetrics & Gynecology
DX: O00.90 Unspecified ectopic pregnancy without intrauterine pregnancy (principal); Z3A.00 Weeks of gestation of pregnancy not specified
CPT/HCPCS: 36415; 84702

== ENCOUNTER 2020-08-13 21:19 | Emergency (ER) | payer OTHER, SELFPAY ==
[2020-07-13 10:36] VITALS: BMI 26.1
[2020-08-13 21:20] VITALS: BP 121/79; PULSE 70; RESP 16; TEMP 36.4; O2SAT 100; BMI 26.4
[2020-08-13] MEDS: HYDROmorphone 0.5 MG/0.5 ML SYRINGE IV ×2 (21:45→22:57)
[2020-08-13] MEDS: Ondansetron 4 MG/2 ML Vial IV (21:45)
[2020-08-13] MEDS: 0.9% Normal Saline 1,000 ML 1000 ML IV (21:46)
--- NOTE | 2020-08-13 21:46 | ED.VISSUMM ---
- ER Visit Summary Date of Service: 08/13/20 Chief Complaint: Pelvic pain History of Present Illness: The patient is a [address] Giancarlo Parks. She has a history of a right tubal in June of this year. She got methotrexate July 03 and has been followed with Rey. This was complicated by a hemorrhagic cyst. She reports that this feels different. Patient reports that she has suprapubic pain that started 1 hour ago. She describes it as a pressure. Was 10 on 10 at worst and 6 out of 10 currently. Is worsened by movement and relieved by leaning over. She reports she has been spotting today as well. She denies any vaginal discharge. No dysuria or frequency. States that she did have a menstrual period approximately 3 weeks ago. Physical Examination: Vitals: Stable. Afebrile. General: Well-nourished and well-developed. Head: Normocephalic atraumatic. Neck: Supple, no lymphadenopathy. No JVD. Nontender. Cardiovascular: Regular rate and rhythm. No murmurs. Respiratory: No respiratory distress. Clear to auscultation bilaterally. Abdominal: Soft, moderate suprapubic tenderness to palpation, nondistended, normal bowel sounds. No guarding, rebound, or peritoneal signs. Back: Nontender. Extremities: Nontender, no edema. Skin: Normal color, no rash. Neurologic: Alert and oriented ?3. Cranial nerves II through XII are intact. Normal strength and sensation. Psych: Normal affect. Test Results: UA shows 5-10 red blood cells with no bacteria. Quantitative hCG is 10. Last quant on August 01 was 43. Emergency Department Course and Treatment: Patient had an IV placed. She was given a liter normal saline. She was given Dilaudid and Zofran IV. She is resting more comfortably. Treatment Plan: Patient was discussed with Dr. Martin. A transvaginal ultrasound has been ordered to rule out ovarian torsion. This will be checked out to the oncoming physician. If this is negative the patient will be discharged with Bolton and Yesenia. Instructed to follow-up with Dr. Giacnarlo Parks in 1 to 2 days for another exam. Disposition: Pending Impression: 1. Pelvic pain, acute. 2. History of ectopic June 2020. This note was generated with Welltec Internationalation software. It may contain incorrect words, spelling, and punctuation that were not noted in review of the chart prior to signing ED Disposition - Plan for ED Patient: Instructions: ED Pelvic Pain [facility] Prescriptions: Hydrocodone Bitart/Apap 5-325 [Bolton 5MG-325MG] 1 tablet PO Q4H PRN PRN 2 Days #10 tablet PRN Reason: Pain Ondansetron [Zofran Odt] 4 mg PO Q8H PRN PRN #10 tablet PRN Reason: Nausea Referrals: Kristi Oseguera MD [STAFF PHYSICIAN] - 1-2 Days if not improving
[2020-08-13 21:58] LABS: Bacteria 0 SEEN /hpf (None Seen); Mucous, Urine 0 SEEN /hpf (<or=2+); White Blood Cells 0 SEEN /hpf (0-5)
[2020-08-13 22:01] LABS: Color, Urine Yellow (Yellow); Glucose, Dipstick Normal (Normal); Ketone-Dipstick Negative (Negative); Leukocyte Esterase-Dipstick Negative /ul (Negative); Nitrite-Dipstick Negative (Negative); Occult Blood-Urine 250 /ul (Negative); Protein-Dipstick 15 mg/dl (Negative); Urine Bilirubin Dipstick Negative (Negative); Urine Clarity Sl. Cloudy (Clear); Urine Urobilinogen Normal (Normal)
[2020-08-13 22:10] LABS: Amorphous Sediment 1+ URATE; Red Blood Cells-Urine 5-10 SEEN /hpf (0-5); Squamous Epithelial Cells - UA 0-5 SEEN /hpf (5-10)
[2020-08-13 22:41] LABS: hCG Titer Quant., Serum 10 mIU/mL (1-3)
--- NOTE | 2020-08-13 22:53 | US_ITS ---
STUDY: FIRST TRIMESTER OBSTETRICAL ULTRASOUND REASON FOR EXAM: Female, 30 years old pain , recent ectopic with methotrexate tx in june quantitative ?-hCG measures 10 mIU/mL. LMP: 07/27/2020. TECHNIQUE: Transabdominal and Transvaginal TECHNICAL QUALITY: Adequate. PRIOR ULTRASOUND: 07/03/2020. FINDINGS: There is no demonstrated intrauterine gestation. The uterus measures 8.8 x 4.9 x 3.5 cm. The endometrium measures 5 mm in thickness and it is hyperechoic.p. There is no demonstrated uterine fibroid. The cervix is closed. The right ovary measures 7.6 x 6.0 x 4.2 cm.. There is a simple appearing right ovarian cyst measuring 2.9 x 2.9 x 1.7 cm. There is also a heterogeneous 4.1 x 3.4 x 3.0 cm solid nodular structure, which is inseparable from the right ovary and was included in the right ovarian measurement. The nodule contains color DOPPLER signal. The left ovary was not visualized. . There is a small amount of free fluid in the posterior cul-de-sac of the pelvis, containing echogenic material, possibly representing blood. There is also a small amount of free fluid is noted in Zhang''s pouch. US/Transvaginal w/Preg US IMPRESSION: Enlarged right ovary containing a 2.9 cm simple appearing cyst. There is also a 4.1 cm heterogeneous solid nodular structure, which is either in or contiguous with the right ovary. Finding is of indeterminate significance. Small amount of free fluid in the posterior cul-de-sac, containing echogenic material, possibly representing blood. Minimal free fluid in the right upper quadrant of the abdomen. Electronically Signed: Chico Jacobo MD at 0:32 EDT , Service support ,
[2020-08-14] MEDS: HYDROmorphone 0.5 MG/0.5 ML SYRINGE IV (01:19)
[2020-08-14 01:22] VITALS: BP 117/88; PULSE 78; RESP 16; O2SAT 100
== END 2020-08-14 01:22 | disposition home or self-care (01) ==
LOC: ED 21:59
PROVIDERS: Emergency Provider Emergency Medicine
DX: R10.2 Pelvic and perineal pain (principal)
CPT/HCPCS: 76817; 81001; 84702; 99281; 99282; J7030; A4216; J2405

== ENCOUNTER → 2020-10-03 14:14 | Outpatient (CLI) | payer OTHER, SELFPAY ==
[2020-08-14 14:01] VITALS: BMI 26.4
--- NOTE | 2020-10-03 14:20 | US_ITS ---
STUDY: ULTRASOUND OF THE FEMALE PELVIS - COMPLETE REASON FOR EXAM: Female, 30 years old. PELVIC PAIN LMP: 09/24/2020 TECHNIQUE: Transabdominal and Transvaginal TECHNICAL QUALITY: 08/13/2020 COMPARISON: 08/13/2020 FINDINGS: The uterus is anteverted and is in a midline position. The uterus measures 6.3 x 5.0 x 3.4 cm. Normal uterine cervix. The endometrium measures 3 mm in thickness, and is hyperechoic. There is no demonstrated endometrial mass. There is no demonstrated myometrial mass. I.U.D. - The patient does not have an I.U.D. The right ovary is visualized. The right ovary measures 2.4 x 2.0 x 1.2 cm. There is no right ovarian cyst or ovarian mass. There is no visualized right adnexal mass or complex lesion. There is normal arterial and normal venous vascularity. The left ovary is visualized. The left ovary measures 2.5 x 2.4 x 0.7 cm. There is no left ovarian cyst or ovarian mass. There is no visualized left adnexal mass or complex lesion. There is normal arterial and normal venous vascularity. There is no fluid in the cul-de-sac. The pre void volume of the bladder was 691 ml. The post void volume of the bladder was ml. Polycystic ovary disease: No. US/Transvaginal Non- IMPRESSION: Normal female pelvis. Electronically Signed: Ben Levine MD at 17:35 EST Tel , Service support ,
--- NOTE | 2020-10-03 14:20 | US_ITS ---
STUDY: ULTRASOUND OF THE FEMALE PELVIS - COMPLETE REASON FOR EXAM: Female, 30 years old. PELVIC PAIN LMP: 09/24/2020 TECHNIQUE: Transabdominal and Transvaginal TECHNICAL QUALITY: 08/13/2020 COMPARISON: 08/13/2020 FINDINGS: The uterus is anteverted and is in a midline position. The uterus measures 6.3 x 5.0 x 3.4 cm. Normal uterine cervix. The endometrium measures 3 mm in thickness, and is hyperechoic. There is no demonstrated endometrial mass. There is no demonstrated myometrial mass. I.U.D. - The patient does not have an I.U.D. The right ovary is visualized. The right ovary measures 2.4 x 2.0 x 1.2 cm. There is no right ovarian cyst or ovarian mass. There is no visualized right adnexal mass or complex lesion. There is normal arterial and normal venous vascularity. The left ovary is visualized. The left ovary measures 2.5 x 2.4 x 0.7 cm. There is no left ovarian cyst or ovarian mass. There is no visualized left adnexal mass or complex lesion. There is normal arterial and normal venous vascularity. There is no fluid in the cul-de-sac. The pre void volume of the bladder was 691 ml. The post void volume of the bladder was ml. Polycystic ovary disease: No. US/Pelvic (Non ) IMPRESSION: Normal female pelvis. Electronically Signed: Ben Levine MD at 17:35 EST Tel , Service support ,
== END ==
PROVIDERS: Referring Provider Obstetrics & Gynecology; Visit Provider Obstetrics & Gynecology
DX: R10.2 Pelvic and perineal pain (principal)
CPT/HCPCS: 76830; 76856

== ENCOUNTER → 2021-05-09 14:12 | Outpatient (CLI) | payer OTHER, SELFPAY ==
[2020-10-13 10:16] VITALS: BMI 26.4
--- NOTE | 2021-05-09 14:40 | RAD_ITS ---
INDICATION: INJURY EXAMINATION/TECHNIQUE: X-RAY - RIGHT XR Ankle Min 3 Views COMPARISON: None. FINDINGS: Transverse fracture of the lateral malleolus with incomplete healing and near anatomic alignment. No blastic or lytic lesions. No degenerative changes are seen. Soft tissue swelling of the ankle. RAD/Ankle min 3 Views IMPRESSION: Transverse fracture of the lateral malleolus with incomplete healing and near anatomic alignment. Electronically Signed: Kar Peterson MD at 22:55 EDT Tel , Service support ,
== END ==
PROVIDERS: Referring Provider Podiatrist; Visit Provider Podiatrist
DX: S82.91XD Unspecified fracture of right lower leg, subsequent encounter for closed fracture with routine healing (principal)
CPT/HCPCS: 73610

== ENCOUNTER → 2021-08-15 09:37 | Outpatient (CLI) | payer BC, SELFPAY ==
[2021-08-15 10:46] LABS: Prolactin 8.6 ng/mL; Thyroid Stim Hormone (TSH) 0.97 uIU/mL (0.358-3.74)
[2021-08-19 17:06] LABS: Testosterone, % Free 2.09 % (0.50-2.80); Testosterone, Free 0.46 ng/dL (0.10-0.85); Testosterone, Total 22 ng/dL (8-60)
== END ==
PROVIDERS: Referring Provider Obstetrics & Gynecology; Visit Provider Obstetrics & Gynecology
DX: Z87.59 Personal history of other complications of pregnancy, childbirth and the puerperium (principal); Z84.2 Family history of other diseases of the genitourinary system
CPT/HCPCS: 36415; 82627; 84146; 84402; 84403; 84443; 82626

== ENCOUNTER → 2021-08-20 11:46 | Outpatient (CLI) | payer BC, SELFPAY ==
--- NOTE | 2021-08-20 12:00 | RAD_ITS ---
INDICATION: HSG EXAMINATION/TECHNIQUE: Routine hysterosalpingography was performed. Total Fluoroscopic Time: 1.03 minutes. number of Fluoroscopic Images: 4 COMPARISON: None. FINDINGS: The uterine cavity contour is unremarkable. There are no filling defects or abnormalities. Both fallopian tubes are patent with free peritoneal spillage bilaterally. RAD/Salpingogram IMPRESSION: Negative hysterosalpingogram. Electronically Signed: Raffy Quiros MD at 15:46 EDT Tel , Service support ,
--- NOTE | 2021-08-22 00:45 | OP.PCM_ITS ---
Problems Associated Problem List Diagnoses (1) Female infertility, unexplained: (2) History of ectopic : Report of Operation Date of Procedure: 08/20/21 Description of Procedure: Preop diagnosis: Infertility Postop diagnosis: Same plus bilateral tubal patency Procedure: Hysterosalpingogram Surgeon: Kristi Oseguera Implantable devices: None Complications: None Findings: Bilateral tubal patency and normal uterine cavity Operative details: Patient was taken to the x-ray room and was placed on the x- ray table and was in the dorsal lithotomy position. Speculum was placed in the vagina and the cervix prepped with Betadine and the HSG catheter was easily introduced into the uterus and speculum removed. Radiologist was brought in and while pushing radiopaque dye into the uterus via the HSG catheter the radiologist took multiple images and views and confirmed bilateral tubal patency seen. No gross uterine filling defects or abnormalities were seen. All instruments removed from the vagina and the uterus without complication. Patient tolerated the procedure well.
== END ==
PROVIDERS: Referring Provider Obstetrics & Gynecology; Visit Provider Obstetrics & Gynecology
DX: N97.9 Female infertility, unspecified (principal); Z87.59 Personal history of other complications of pregnancy, childbirth and the puerperium
CPT/HCPCS: 58340; 74740

== ENCOUNTER → 2021-11-07 07:28 | Outpatient (CLI) | payer OTHER, SELFPAY ==
[2021-11-07 08:24] LABS: hCG Titer Quant., Serum 116 mIU/mL (1-3)
== END ==
PROVIDERS: Referring Provider Obstetrics & Gynecology; Visit Provider Obstetrics & Gynecology
DX: N91.2 Amenorrhea, unspecified (principal)
CPT/HCPCS: 36415; 84702

== ENCOUNTER → 2021-11-09 09:58 | Outpatient (CLI) | payer OTHER, SELFPAY ==
[2021-11-09 10:52] LABS: hCG Titer Quant., Serum 326 mIU/mL (1-3)
== END ==
PROVIDERS: Visit Provider Obstetrics & Gynecology
DX: Z34.90 Encounter for supervision of normal pregnancy, unspecified, unspecified trimester (principal)
CPT/HCPCS: 36415; 84702

== ENCOUNTER 2021-11-29 07:40 | Outpatient (CLI) | payer OTHER, SELFPAY ==
[2021-11-29 08:36] LABS: hCG Titer Quant., Serum 54229 mIU/mL (1-3)
== END 2021-11-29 23:59 | disposition short-term general hospital (02) ==
PROVIDERS: Referring Provider Obstetrics & Gynecology; Visit Provider Obstetrics & Gynecology
DX: Z87.59 Personal history of other complications of pregnancy, childbirth and the puerperium (principal)
CPT/HCPCS: 36415; 84702

== ENCOUNTER 2021-12-10 16:08 | Outpatient (CLI) | payer OTHER, SELFPAY ==
[2021-12-10 18:43] LABS: Amphetamine Urine VISTA NEGATIVE (<1000 ng/mL); Barbiturate Urine VISTA NEGATIVE (< 200 ng/mL); Benzodiazepine Urine VISTA NEGATIVE (< 200 ng/mL); Cocaine Urine VISTA NEGATIVE (< 300 ng/mL); Ecstacy Urine VISTA NEGATIVE (< 500 ng/mL); Methadone Urine VISTA NEGATIVE (< 300 ng/mL); PCP Urine VISTA NEGATIVE (< 25 ng/mL); THC Urine VISTA NEGATIVE (< 50 ng/mL); Vista UDS pH Range 5
[2021-12-12 22:06] LABS: Chlamydia By Nucleic Acid AMP Negative (Negative)
[2021-12-13 07:47] LABS: Gonococcus By Nucleic Acid AMP Negative (Negative)
== END 2021-12-10 23:59 | disposition short-term general hospital (02) ==
LOC: LABSPEC 16:12
PROVIDERS: Visit Provider Obstetrics & Gynecology
DX: Z34.90 Encounter for supervision of normal pregnancy, unspecified, unspecified trimester (principal)
CPT/HCPCS: 80307; 87077; 87086; 87088; 87186; 87491; 87591

== ENCOUNTER 2021-12-19 12:38 | Outpatient (CLI) | payer OTHER, SELFPAY ==
[2021-12-19 13:20] LABS: Absolute Lymphocyte Count 2.17 X10^3/uL (0.83-4.51); Absolute Neutrophil Count 7.9 X10^3/uL (2.0-7.7); Basophil# 0.05 X10^3/uL; Basophil% 0.5 % (0-1); Eosinophil# 0.11 X10^3/uL; Hematocrit 34.1 % (37-47); Hemoglobin 11.8 g/dL (12.0-15.0); Lymphocyte # 2.17 X10^3/ul (0.83-4.51); Lymphocyte % 20.1 % (19-41); Mean Corp Hgb Conc 34.6 g/dL (32-36); Mean Corpuscular Hgb 30.8 pg (27.0-32.0); Monocyte# 0.51 X10^3/uL; Monocyte% 4.7 % (0-10); NRBC Flagged by Analyzer 0 % (0-5); Neutrophil # 7.94 X10^3/uL (2.7-7.7); Neutrophil % 73.3 % (47-70); Platelet Count 253 K/mm3 (150-450); RBC Distribution Width CV 12.1 % (11.6-14.6); RBC Distribution Width SD 38.9 fl (35.1-43.9); Red Blood Count 3.83 M/mm3 (4.2-5.4); White Blood Count 10.8 K/mm3 (4.4-11.0)
[2021-12-19 13:57] LABS: NATERA MAILED SPECIMEN
[2021-12-19 14:23] LABS: HIV - WCH Non-Reactive (Nonreactive); Hepatitis B Surface Antigen Non-Reactive (Nonreactive); Hepatitis C Antibody Non-Reactive (Nonreactive); Rubella IgG Reactive (Nonreactive); Syphilis Antibodies Non-reactive
== END 2021-12-19 23:59 | disposition short-term general hospital (02) ==
LOC: PAVLAB 12:39
PROVIDERS: Referring Provider Obstetrics & Gynecology; Visit Provider Obstetrics & Gynecology
DX: Z34.90 Encounter for supervision of normal pregnancy, unspecified, unspecified trimester (principal)
CPT/HCPCS: 36415; 85025; 86703; 86762; 86780; 86803; 86850; 86900; 86901; 87340

== ENCOUNTER 2022-02-28 12:18 | Outpatient (CLI) | payer OTHER, SELFPAY ==
--- NOTE | 2022-02-28 12:22 | US_ITS ---
STUDY: SECOND AND THIRD TRIMESTER OBSTETRICAL ULTRASOUND REASON FOR EXAM: Female, 32 years old . Anatomy scan. LMP: 10/09/2022. TECHNIQUE: Transabdominal and Transvaginal TECHNICAL QUALITY: Adequate. PRIOR ULTRASOUND: None. FINDINGS: There is a single intrauterine fetus. The fetus is in a cephalic presentation. There is demonstrated cardiac activity with a heart rate of 158 bpm. There is a normal amniotic fluid volume. The largest amniotic fluid pocket measures 5.87 x 5.8 cm. The amniotic fluid index (KATIE) is within normal limits. The placenta is anterior in location and is not low lying. There are Grade 0 placental changes. The cervix measures 3.7 cm in length. The adnexal regions are not visualized. BIOMETRY: BPD: 4.93 cm: 20 weeks, 6 days HC: 17.7 cm: 20 weeks, 1 days AC: 16.25 cm: 21 weeks, 2 days FL: 3.32 cm: 20 weeks, 2 days CI: 80% FL/BPD: 67% FL/HC: FL/AC: 20% HC/AC: 1.09 age by current US: 20 weeks, 3 days. NAKUL by current US: 07/15/2022. Estimated weight: 388 grams, +/- 58 grams, 79 %. Age by LMP: 20 weeks, 2 days. NAKUL by LMP: 07/16/2022. ANATOMY: Gender: Female Cranium: Normal lateral ventricles. Normal choroid plexus. Normal cerebellum. Normal cisterna magna. Normal face, nose and lips. Chest: Normal 4-chamber heart. Abdomen/Pelvis: Normal diaphragm. Normal stomach. Normal abdominal wall. Normal cord insertion. Normal 3 vessel cord. Bilateral renal pelves measure 3 mm. Normal bladder. Spine: Normal cervical spine. Normal thoracic spine. Normal lumbar spine. Normal sacrum. Extremities: Normal bilateral upper extremities. Normal bilateral lower extremities. US/OB Anatomy Scan IMPRESSION: Single live intrauterine gestation with a mean gestational age of 20 weeks and 3 days. The renal pelves measure 3 mm. This is within normal limits. Electronically Signed: Stephen Pedro MD at 14:50 EDT ,
== END 2022-02-28 23:59 | disposition home or self-care (01) ==
PROVIDERS: Referring Provider Obstetrics & Gynecology; Visit Provider Obstetrics & Gynecology
DX: O09.899 Supervision of other high risk pregnancies, unspecified trimester (principal)
CPT/HCPCS: 76805; 76817

== ENCOUNTER → 2022-04-18 | Outpatient (CLI) | payer OTHER, SELFPAY ==
[2022-04-18 07:45] LABS: Glucose Challenge Gest 1H 50g 153 mg/dL (70-140)
== END | disposition home or self-care (01) ==
LOC: LAB 06:57
PROVIDERS: Referring Provider Obstetrics & Gynecology; Visit Provider Obstetrics & Gynecology
DX: Z13.1 Encounter for screening for diabetes mellitus (principal)
CPT/HCPCS: 36415; 82950

== ENCOUNTER → 2022-04-25 | Outpatient (CLI) | payer OTHER, SELFPAY ==
[2022-04-25 08:01] LABS: Absolute Lymphocyte Count 2.67 X10^3/uL (0.83-4.51); Absolute Neutrophil Count 7.6 X10^3/uL (2.0-7.7); Basophil# 0.04 X10^3/uL; Basophil% 0.4 % (0-1); Eosinophil# 0.22 X10^3/uL; Hematocrit 33.8 % (37-47); Hemoglobin 11.4 g/dL (12.0-15.0); Lymphocyte # 2.67 X10^3/ul (0.83-4.51); Lymphocyte % 23.8 % (19-41); Mean Corp Hgb Conc 33.7 g/dL (32-36); Mean Corpuscular Hgb 31.2 pg (27.0-32.0); Mean Corpuscular Volume 92.6 fL (81-99); Mean Platelet Vol. 10.8 fl (6.2-12.0); Monocyte# 0.69 X10^3/uL; Monocyte% 6.1 % (0-10); NRBC Flagged by Analyzer 0 % (0-5); Neutrophil # 7.55 X10^3/uL (2.7-7.7); Neutrophil % 67.2 % (47-70); Platelet Count 255 K/mm3 (150-450); RBC Distribution Width CV 12.1 % (11.6-14.6); RBC Distribution Width SD 41.1 fl (35.1-43.9); Red Blood Count 3.65 M/mm3 (4.2-5.4); White Blood Count 11.2 K/mm3 (4.4-11.0)
[2022-04-25 08:24] LABS: Glucose GTT-Gestational 1 Hr 163 mg/dL (<190)
[2022-04-25 08:26] LABS: Glucose GTT-Gestation. Fasting 78 mg/dL (<105)
[2022-04-25 10:55] LABS: Glucose GTT-Gestational 3 Hr 125 L (<145)
[2022-04-25 11:00] LABS: Glucose GTT-Gestational 2 Hr 146 mg/dL (<165)
== END | disposition home or self-care (01) ==
LOC: LAB 06:36
PROVIDERS: Referring Provider Obstetrics & Gynecology; Visit Provider Obstetrics & Gynecology
DX: O09.899 Supervision of other high risk pregnancies, unspecified trimester (principal); Z13.1 Encounter for screening for diabetes mellitus
CPT/HCPCS: 36415; 82951; 82952; 85025

== ENCOUNTER → 2022-06-19 | Outpatient (CLI) | payer OTHER, SELFPAY | END | disposition home or self-care (01) | LOC: LABSPEC 12:08 | PROVIDERS: Referring Provider Obstetrics & Gynecology; Visit Provider Obstetrics & Gynecology | DX: O09.899 Supervision of other high risk pregnancies, unspecified trimester (principal) | CPT/HCPCS: 87081 ==

== ENCOUNTER 2022-07-15 22:32 | Inpatient (IN) | payer OTHER, SELFPAY ==
[2022-07-15] VITALS (12 sets, daily range): BP systolic 108–133; BP diastolic 60–89; PULSE 68–80; O2SAT 97–98; BMI 31.4
[2022-07-15] MEDS: Lactated Ringers 1,000 ML 200 ML IV (22:49)
[2022-07-15] MEDS: LACTATED RINGERS 500 ML 999 ML IV (22:50)
[2022-07-15 23:08] LABS: Absolute Lymphocyte Count 1.89 X10^3/uL (0.83-4.51); Absolute Neutrophil Count 12.8 X10^3/uL (2.0-7.7); Basophil# 0.04 X10^3/uL; Basophil% 0.2 % (0-1); Eosinophil# 0.04 X10^3/uL; Eosinophils% 0.2 % (0-5); Hematocrit 31.4 % (37-47); Hemoglobin 10.8 g/dL (12.0-15.0); Lymphocyte # 1.89 X10^3/ul (0.83-4.51); Lymphocyte % 11.7 % (19-41); Mean Corp Hgb Conc 34.4 g/dL (32-36); Mean Corpuscular Hgb 30.9 pg (27.0-32.0); Mean Platelet Vol. 11.5 fl (6.2-12.0); Monocyte# 1.22 X10^3/uL; Monocyte% 7.6 % (0-10); NRBC Flagged by Analyzer 0 % (0-5); Neutrophil # 12.84 X10^3/uL (2.7-7.7); Neutrophil % 79.9 % (47-70); Platelet Count 220 K/mm3 (150-450); RBC Distribution Width CV 13.2 % (11.6-14.6); Red Blood Count 3.49 M/mm3 (4.2-5.4); White Blood Count 16.1 K/mm3 (4.4-11.0)
[2022-07-15] MEDS: fentaNYL-bupivacaine (epidural) 100 ML BAG EPIDURAL (23:40)
[2022-07-16] VITALS (24 sets, daily range): BP systolic 98–141; BP diastolic 50–100; PULSE 60–164; RESP 16–17; TEMP 36–37.2; O2SAT 97–99
--- NOTE | 2022-07-16 03:49 | HP.PCM.OB_ITS ---
HPI - General General Date of Admission: 07/15/22 HPI Narrative TONO CAR, is a 32 F who presents IAL and SROM clear fluid. no vb admits good fm now though was decreased today and regular ctx. Maternal Data Information NAKUL Calculator Estimated Delivery Date Method Current WG Current Estimate 07/16/22 LMP (Certain) 40w 0d PFSH PFSH Medical History History of miscarriage Home Medications multivitamin no.47-iron fum 27 mg-folate no.1 1 mg-dha 300 mg capsule (PNV-DHA) 1 cap PO DAILY 07/30/21 [History Last Taken 07/15/22 07:30] Allergy/AdvReac Type Severity Reaction Status Date / Time morphine AdvReac Other Verified 07/15/22 14:48 Family History Grandmother Breast cancer Cancer Surgical History History of total cystectomy Social History Smoking Status: Never smoker alcohol intake: current alcohol intake frequency: a few times a month Alcohol type: beer details: socially substance use type: does not use caffeine: Yes what type of physical activity do you participate in: weight training frequency: 3-4 times per week seatbelt use: always do you feel safe at home: Yes 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 : yes PP control planned: [] discussed possible routes of delivery and associated risks: [] special requests: [] Plans Covid status: vaccinated Flu vaccine: will get Tdap vaccine: given Rhogam: na LARC form signed: declined. movement and labor precautions reviewed. Problem list reviewed and updated with the most current plan of care details and appropriate orders placed. Relevant counseling for the gestational age provided. Continue routine care and follow up unless otherwise noted in visit notes/problem list details OB Flowsheet Initial Weight: 153 lb Date -?-?-?-?-?-?-?-?-?-?-?-?- EGA Weight BP Urine Prot -?-?-?-?-?-?-?-?-?-?-?-?- Glucose FHR FuHt Pres Dilation -?-?-?-?-?-?-?-?-?-?-?-?- Effaced St Visit Note 12/10/21 -?-?-?-?-?-?-?-?-?-?-?-?- 8w 6d 153 lb (+0 oz) 118/70 -?-?-?-?-?-?-?-?-?-?-?-?- 185 -?-?-?-?-?-?-?-?-?-?-?-?- SM- CRL 2 cm con s with LMP 12/24/21 -?-?-?-?-?-?-?-?-?-?-?-?- 10w 6d 154 lb (+16 oz) 118/66 Negative -?-?-?-?-?-?-?-?-?-?-?-?- Negative 180 -?-?-?-?-?-?-?-?-?-?-?-?- SM- no vb crampi ng 01/24/22 -?-?-?-?-?-?-?-?-?-?-?-?- 15w 2d 155 lb (+2 lb) 94/62 Negative -?-?-?-?-?-?-?-?-?-?-?-?- Negative 165 -?-?-?-?-?-?-?-?-?-?-?-?- SM- no vb crampi ng 02/21/22 -?-?-?-?-?-?-?-?-?-?-?-?- 19w 2d 160 lb 4 oz (+7 lb 4 oz) 110/80 Negative -?-?-?-?-?-?-?-?-?-?-?-?- Negative 153 -?-?-?-?-?-?-?-?-?-?-?-?- JV- no lof, vagi nal bleeding, or cramping . Anatomy scan ordered through [facility]. 03/22/22 -?-?-?-?-?-?-?-?-?-?-?-?- 23w 3d 162 lb (+9 lb) 130/80 Negative -?-?-?-?-?-?-?-?-?-?-?-?- Negative 156 -?-?-?-?-?-?-?-?-?-?-?-?- MH-No Vb, LOF. G ood FM. She is hesitant for future GCT lab 04/18/22 -?-?-?-?-?-?-?-?-?-?-?-?- 27w 2d 164 lb 6 oz (+11 lb 6 oz) 128/82 Negative -?-?-?-?-?-?-?-?-?-?-?-?- Negative 140 28 -?-?-?-?-?-?-?--?-?-?-?-?- JV- pt failed 1 hr gct, she is willing to do the 3 hr GTT after long discussion. 05/02/22 -?-?-?-?-?-?-?-?-?-?-?-?- 29w 2d 166 lb (+13 lb) 102/80 Negative -?-?-?-?-?-?-?-?-?-?-?-?- Negative 140 30 -?-?-?-?-?-?-?-?-?-?-?-?- SM- no vb lof go od fm no regular ctx 05/16/22 -?-?-?-?-?-?-?-?-?-?-?-?- 31w 2d 169 lb 6 oz (+16 lb 6 oz) 116/80 Negative -?-?-?-?-?-?-?-?-?-?-?-?- Negative 139 31 -?-?-?-?-?-?-?-?-?-?-?-?- JV- no complaint s today, passed 3 hr and happy. 05/30/22 -?-?-?-?-?-?-?-?-?-?-?-?- 33w 2d 171 lb 4 oz (+18 lb 4 oz) 127/81 Negative -?-?-?-?-?-?-?-?-?-?-?-?- Negative 140 33 -?-?-?-?-?-?-?-?-?-?-?-?- SM- no vb lof go od fm no regular ctx 06/13/22 -?-?-?-?-?-?-?-?-?-?-?-?- 35w 2d 172 lb (+19 lb) 118/72 Negative -?-?-?-?-?-?-?-?-?-?-?-?- Negative 145 35 -?-?-?-?-?-?-?-?-?-?-?-?- JV- no lof, vagi nal bleeding, or dec fm. plan for gbs next visit. 06/19/22 -?-?-?-?-?-?-?-?-?-?-?-?- 36w 1d 174 lb 6 oz (+21 lb 6 oz) 126/80 Negative -?-?-?-?-?-?-?-?-?-?-?-?- Negative 140 36 Cephalic 0 -?-?-?-?-?-?-?-?-?-?-?-?- JV- no lof, vagi nal bleeding, or dec fm. gbs collected. 06/24/22 -?-?-?-?-?-?-?-?-?-?-?-?- 36w 6d 175 lb (+22 lb) 130/80 Negative -?-?-?-?-?-?-?-?-?-?-?-?- Negative 140 38 Cephalic 0 -?-?-?-?-?-?-?-?-?-?-?-?- SM- no vb lof go od fm n oregular ctx 07/03/22 -?-?-?-?-?-?-?-?-?-?-?-?- 38w 1d 175 lb 6 oz (+22 lb 6 oz) 118/82 Negative -?-?-?-?-?-?-?-?-?-?-?-?- Negative 150 38 Cephalic 0 .5 -?-?-?-?-?-?-?-?-?-?-?-?- JV- no lof, vagi nal bleeding, or dec fm. 07/11/22 -?-?-?-?-?-?-?-?-?-?-?-?- 39w 2d 177 lb 6 oz (+24 lb 6 oz) 126/74 Negative -?-?-?-?-?-?-?-?-?-?-?-?- Negative 140 40 Cephalic 1 -?-?-?-?-?-?-?-?-?-?-?-?- SM- no vb lof go od fm no regualr ctx 07/15/22 -?-?-?-?-?-?-?-?-?-?-?-?- 39w 6d 177 lb 11.081 oz (+24 lb 11.081 oz) 125/79 126/89 133/79 114/76 108/66 115/64 110/60 118/66 121/66 124/75 113/64 111/66 -?-?-?-?-?-?-?-?-?-?-?-?- -?-?-?-?-?--?-?-?-?-?-?-?- NST FHR Rate Baby A Baseline: 130 Variability:: Moderate Accelerations:: 15 x 15 Decelerations:: None NST Reactive:: Yes FHR Category:: Category I Uterine Activity:: q3-5 ROS Constitutional Constitutional: Reports systems reviewed and no addt'l complaints, except as documented ENT HEENT: Reports systems reviewed and no addt'l complaints, except as documented Cardiovascular Cardiovascular: Reports systems reviewed and no addt'l complaints, except as documented Respiratory/Chest Respiratory/Chest: Reports systems reviewed and no addt'l complaints, except as documented Gastrointestinal Gastrointestinal: Reports systems reviewed and no addt'l complaints, except as documented and nausea; Denies abdominal pain Genitourinary Genitourinary: Reports systems reviewed and no addt'l complaints, except as documented, contractions Details: present and frequency (regular ) and movement Details: present Musculoskeletal Musculoskeletal: Reports systems reviewed and no addt'l complaints, except as documented Integumentary Integumentary: Reports as per HPI Neurologic Neurologic: Reports systems reviewed and no addt'l complaints, except as documented Endocrine Endocrinology: Reports systems reviewed and no addt'l complaints, except as documented Vital Signs Vital Signs Vital Signs: 07/15/22 22:23 07/15/22 22:23 07/15/22 23:28 Temperature Temperature Source Pulse Rate 73 Blood Pressure 125/79 H 126/89 H BP Systolic 125 126 BP Diastolic 79 89 Pulse Ox 07/15/22 23:28 07/15/22 23:28 07/15/22 23:33 Temperature Temperature Source Pulse Rate 69 71 Blood Pressure BP Systolic BP Diastolic Pulse Ox 98 07/15/22 23:33 07/15/22 23:34 07/15/22 23:34 Temperature Temperature Source Pulse Rate 68 Blood Pressure 133/79 H BP Systolic 133 BP Diastolic 79 Pulse Ox 98 07/15/22 23:39 07/15/22 23:39 07/15/22 23:38 Temperature Temperature Source Pulse Rate 80 Blood Pressure 114/76 BP Systolic 114 BP Diastolic 76 Pulse Ox 98 07/15/22 23:43 07/15/22 23:43 07/15/22 23:43 Temperature Temperature Source Pulse Rate 77 Blood Pressure 108/66 BP Systolic 108 BP Diastolic 66 Pulse Ox 97 07/15/22 23:48 07/15/22 23:48 07/15/22 23:49 Temperature Temperature Source Pulse Rate 75 Blood Pressure 115/64 BP Systolic 115 BP Diastolic 64 Pulse Ox 98 07/15/22 23:49 07/15/22 23:53 07/15/22 23:53 Temperature Temperature Source Pulse Rate 80 75 Blood Pressure 110/60 BP Systolic 110 BP Diastolic 60 Pulse Ox 07/15/22 23:53 07/15/22 23:59 07/15/22 23:59 Temperature Temperature Source Pulse Rate 74 Blood Pressure 118/66 BP Systolic 118 BP Diastolic 66 Pulse Ox 98 07/15/22 23:58 07/16/22 00:03 07/16/22 00:03 Temperature Temperature Source Pulse Rate 82 Blood Pressure BP Systolic BP Diastolic Pulse Ox 98 99 07/16/22 00:05 07/16/22 00:05 07/16/22 00:34 Temperature Temperature Source Pulse Rate 74 Blood Pressure 121/66 H 124/75 H BP Systolic 121 124 BP Diastolic 66 75 Pulse Ox 07/16/22 00:34 07/16/22 00:34 07/16/22 00:34 Temperature 97.8 F Temperature Source Temporal Pulse Rate 80 Blood Pressure BP Systolic BP Diastolic Pulse Ox 07/16/22 01:22 07/16/22 01:22 07/16/22 01:22 Temperature Temperature Source Temporal Pulse Rate 68 Blood Pressure 113/64 BP Systolic 113 BP Diastolic 64 Pulse Ox 07/16/22 01:22 07/16/22 01:22 07/16/22 02:46 Temperature 98.0 F Temperature Source Pulse Rate Blood Pressure 111/66 BP Systolic 111 BP Diastolic 66 Pulse Ox 97 07/16/22 02:46 07/16/22 02:46 07/16/22 02:46 Temperature 98.5 F Temperature Source Temporal Pulse Rate 67 Blood Pressure BP Systolic BP Diastolic Pulse Ox Weight Weight: 177 lb 11.081 oz Body Mass Index (BMI) 31.4 Physical Exam Const alert, oriented x3 and healthy appearing Constitutional Narrative: uncomfortable with contractions HEENT normocephalic and moist oral mucous membranes Head and Scalp: atraumatic Neck full ROM, no lymphadenopathy, supple and thyroid normal General: trachea midline Thyroid: thyroid normal Lymph Lymphatic: no lymphadenopathy noted Chest inspection of chest normal Resp normal respiratory effort Cardio regular rate GI normal to inspection, nondistended, normoactive bowel sounds, soft to palpation and non-tender Inspection: gravid external exam normal Bimanual Exam - Vag & Uterus: uterus non-tender Manual OB Exam: estimated gestational size appropriate, presentation cephalic, dilated, effaced and station Extremity normal to inspection General Extremity: Negative for edema Skin no rashes or lesions noted Neuro deep tendon reflexes 2+ bilaterally Motor Exam: strength 5/5 throughout and clonus absent Psych mental status grossly normal Labs Labs Labs: Blood Type A POSITIVE Antibody Screen NEGATIVE Hct 31.4 % (37-47) L Hgb 10.8 g/dL (12.0-15.0) L Obstetrics US Syphilis Total Ab Non-reactive Rubella IgG Antibody Reactive (Nonreactive) Hep Bs Antigen Non-Reactive (Nonreactive) Chlamydia DNA (PAZ) Negative (Negative) Neisseria gonorrhoeae DNA (PAZ) Negative (Negative) HIV 1&2 Antibody Non-Reactive (Nonreactive) Glucose 1 Hr 50 gm 153 mg/dL (70-140) H Miscellaneous Test Assessment & Plan (1) Abnormal glucose affecting : COMMENT: passed 3 hr GTT (2) Supervision of other high-risk : COMMENT: PRR NAKUL 07/16/22 surprise Spouse:Jose (3) : QUALIFIERS: Weeks of gestation: 39 weeks Qualified Code(s): Z3A.39 - 39 weeks gestation of COMMENT: GBS neg. genetics LR (gender in envelope). carrier declined.02/28 growth nl 79% (4) Family history of Down syndrome: COMMENT: Patient's nephew PLAN: Plan Patient presents IAL, plan expectant management for , pitocin/AROM PRN if needed. Pain management: plans epidural. GBS neg. Management of any complications: none I have reviewed the [facility] and made any clinically relevant updates.
--- NOTE | 2022-07-16 03:50 | EX.PCM.OBRPT ---
Assessment & Plan (1) Abnormal glucose affecting : COMMENT: passed 3 hr GTT (2) Supervision of other high-risk : COMMENT: PRR NAKUL 07/16/22 surprise Spouse:Jose (3) : QUALIFIERS: Weeks of gestation: 39 weeks Qualified Code(s): Z3A.39 - 39 weeks gestation of COMMENT: GBS neg. genetics LR (gender in envelope). carrier declined.02/28 growth nl 79% (4) Family history of Down syndrome: COMMENT: Patient's nephew (5) Vaginal delivery: COMMENT: SM IAL 40 Maternal Data Information NAKUL Calculator Estimated Delivery Date Method Current WG Current Estimate 07/16/22 LMP (Certain) 40w 0d Vaginal Delivery Operative Information Date of Procedure: 07/16/22 Pre-Operative Diagnosis: IAL Post-Operative Diagnosis: same Surgery / Procedure Performed: Vacuum Assisted Vaginal Delivery Type of Anesthesia: Epidural Special Medications: none Estimated Blood Loss: 200 Fluids Replaced: crystalloid Findings Description of Procedure: Patient began pushing and after over 3 hours of pushing she was still at a +2 to +3 station with significant caput. Patient was counseled regarding options of continued pushing for another hour versus vacuum assistance due to suspected asynclitic presentation. Patient consented to vacuum assistance. Kiwi vacuum was applied at the +3 station infant was ira and 2 pulls were made with no pop offs with total duration of application less than 3 minutes and just under the green zone of pressure maintained throughout. The head was delivered atraumatically [and a loose nuchal cord ?1 was identified and the delivered through without complication]. The anterior and posterior shoulders delivered without complication followed by the rest of the infant and the infant was placed on the maternal abdomen. Delayed cord clamping was employed for approximately 60 seconds. Cord was clamped and cut and gentle traction was applied to the cord and the placenta delivered spontaneously immediately following it was noted to be intact with three-vessel cord. The perineum and vagina were inspected and noted to have a second-degree perineal laceration that was repaired in the usual fashion with 3-0 Vicryl Rapide. EBL was 200 cc. Patient and tolerated delivery well. Presentation: IRA Amniotic Membrane Rupture Type: Spontaneous Amniotic Fluid Description: Clear Placental Delivery Description: Spontaneous Placenta Disposition: [facility] Cord Vessel Description: 3 Vessels Cord Entanglement: Around neck x 1, loose A Gender: Female Delayed Cord Clamping: Yes Post Vaginal Delivery Medications Given After Delivery: IV Pitocin Episiotomy Description: None Laceration: Perineal Extension/lac and 2nd degree Complication Complications: None Procedures Urinary/Genital [id number]: [id number] Vaginal Delivery [facility]
--- NOTE | 2022-07-16 03:51 | DCINST_ITS ---
Discharge Instructions Diet Discharge Diet: No restrictions Activity Discharge Activity: Return to Normal Activity, May Drive, May Shower and May Take a Tub Bath (in 4 weeks) May resume sexual activity in: 6-8 weeks (after seen by OB provider) Weight Bearing Status: Full weight bearing Lifting Restrictions: none Dressing / Incision Call your doctor if you observe: Fever of 101 or Higher, Inability to urinate, Using more than 1 pad per hour (for more than 2 hours in a row or more), Shortness of breath, Dizziness, Chest pain and - (headache not controlled with tylenol, change in vision) Follow Up Care When: in 6 weeks for visit, call the office to make the appointment. If you had elevated blood pressures call the office to be seen within 1 week. Test Results: Test results from this visit will be discussed in further detail at your follow- up appointment, if applicable. Discharge Plan Admission Admit Date/Time: 07/15/22 22:32 Attending Provider: Kristi Oseguera Primary Care Provider: Care Physician,Yolanda Primary Instructions Patient Instructions: After a Vaginal Discharge Orders/Prescriptions Prescriptions: No Action PNV-DHA 27 mg iron-1 mg -300 mg capsule 1 cap PO DAILY Referrals / Follow Up: Care Physician,No Primary [Primary Care Provider] - Disposition Disposition (needs filled in before D/C Order can be placed): Home, Self Care
[2022-07-16] MEDS: fentaNYL-bupivacaine (epidural) 100 ML BAG EPIDURAL (03:53)
[2022-07-16] MEDS: Lactated Ringers 1,000 ML 200 ML IV (04:24)
[2022-07-16] MEDS: Oxytocin 30 units/NS 500 ml 30 UNITS/500 ML IV.SOLN 334 UNITS IV (06:30)
[2022-07-16] MEDS: Acetaminophen 500 MG Tablet 1000 MG PO ×2 (11:16→20:13)
[2022-07-16] MEDS: Senna/Docusate Sodium 1 Tablet PO (11:17)
[2022-07-16] MEDS: Benzocaine/Lanolin/Aloe Vera 1 SPRAY EACH TOPICAL (14:16)
[2022-07-16] MEDS: Naproxen 500 MG Tablet PO (14:16)
--- NOTE | 2022-07-16 14:56 | CASEMGMT ---
Social Work Labor and Delivery Unit Reason for intervention: Validation of advance directives Reviewed chart and also could not find any advanced directives on file. Chart reviewed and noted that this is the mother of baby (MOB) and father of baby (FOB) first child. MOB is 3, para 0 now 1 after delivering baby girl Agatha. MOB denied domestic violence screening upon admission and no indication in record regarding substance use issues or emotional health issues. Met with MOB and FOB in room, introducing to self and social work role. Educated to need for follow-up regarding advanced directive validation. MOB and FOB both report to have completed power of claims attorney for healthcare and living will. FOB reports to be a financial planning analyst so knows the importance of having directives in place. This software writer requested FOB bring in copies f happens to go home before discharge. FOB reports to have the directive somewhere digitally and agrees to email this software writer if can find the directives. While this software writer in the room completed brief social work assessment, as parents are first time parents and wanted to ensure no social/emotional needs are present. MOB and FOB have been together for about 16 years and for about 13. 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 It is reported there is good family support available. No concerns identified about being able to meet basic needs. MOB will be off of work for 3 months, and longer if chooses to do so. No reported concerns about any substance use issues. Maternal drug screen negative on 12/10/2021. Explored with the MOB and FOB any concerns regarding depression and anxiety. MOB reports to have people in her life who experienced mood and anxiety issues, so aware that this can happen, and can happen to anyone. No current concerns reported or indicated regarding mood and anxiety. MOB reports she and the FOB have been in discussions prior to delivery about the importance of being transparent regarding feelings, taking breaks, and seeking out support if needed. This software writer provided some education on mood and anxiety disorders, risk factors, and some common signs and symptoms. Emotional support provided. Provided MOB and FOB was a packet on mood and anxiety disorders for home-going. Provided information on nurse visit program in [facility], where the family lives. Provided this software writer's business card including email for the FOB to follow-up with the advance directives. MOB and FOB expressed appreciation for social problems specialist's time, as well as for the care provided by staff to the family during this labor and delivery experience. Observed FOB to handle and care for the baby in a gentle and appropriate manner. FOB seemed attentive to the baby, gazing at that the baby and adjusting the baby as needed. MOB appeared sleepy, but still engaged in conversation, good eye contact, and pleasant. MOB and FOB both conversed easily with each other, and appeared to have open conversation as evidenced by MOB and FOB making supportive comments to each other. Plan: MOB and FOB will discharge home with . Information has been provided on mood and anxiety disorders as well as a local resource for home nurse visiting. FOB is aware of how to contact this software writer for provision of advanced directives when able. -STEPHEN Retana, STORE CLERK CHECKER *This note was generated with [employer] dictation software. It may contain incorrect words, spelling, and punctuation that were not noted in review of the chart prior to signing*
--- NOTE | 2022-07-16 15:11 | NURSING ---
student charting reviewed-Gil KANG
[2022-07-16 18:14] LABS: Absolute Lymphocyte Count 1.64 X10^3/uL (0.83-4.51); Absolute Neutrophil Count 20.6 X10^3/uL (2.0-7.7); Basophil# 0.04 X10^3/uL; Basophil% 0.2 % (0-1); Eosinophil# 0.01 X10^3/uL; Hematocrit 30.1 % (37-47); Hemoglobin 10.1 g/dL (12.0-15.0); Lymphocyte # 1.64 X10^3/ul (0.83-4.51); Mean Corp Hgb Conc 33.6 g/dL (32-36); Mean Corpuscular Volume 89.3 fL (81-99); Mean Platelet Vol. 11.9 fl (6.2-12.0); Monocyte# 1.06 X10^3/uL; Monocyte% 4.5 % (0-10); NRBC Flagged by Analyzer 0 % (0-5); Neutrophil # 20.55 X10^3/uL (2.7-7.7); Neutrophil % 87.4 % (47-70); POSITIVE COUNT YES; POSITIVE DIFFERENTIAL YES; Platelet Count 234 K/mm3 (150-450); RBC Distribution Width CV 12.8 % (11.6-14.6); RBC Distribution Width SD 41.8 fl (35.1-43.9); Red Blood Count 3.37 M/mm3 (4.2-5.4); White Blood Count 23.5 K/mm3 (4.4-11.0)
[2022-07-16 18:15] LABS: Differential Indicated SCAN CRITERIA MET
[2022-07-16 18:55] LABS: Platelet Estimate ADEQUATE (ADEQ); Platelet Morphology LARGE; Red Cell Morphology N CHROM NORMAL (NORM C&C)
[2022-07-16 18:56] LABS: Anisocytosis RARE
[2022-07-16] MEDS: 0.9% Saline Lock 10 ML Syringe IV (20:13)
[2022-07-17 00:08] VITALS: BP 123/84; PULSE 63; RESP 16; TEMP 36.4
[2022-07-17] MEDS: Naproxen 500 MG Tablet PO ×2 (03:04→12:10)
[2022-07-17 04:08] VITALS: BP 112/74; PULSE 68; RESP 17; TEMP 36.4
[2022-07-17 06:01] LABS: Hematocrit 22.4 % (37-47); Hemoglobin 7.8 g/dL (12.0-15.0); Mean Corp Hgb Conc 34.8 g/dL (32-36); Mean Corpuscular Hgb 31.3 pg (27.0-32.0); Mean Platelet Vol. 11.3 fl (6.2-12.0); Platelet Count 231 K/mm3 (150-450); RBC Distribution Width CV 12.9 % (11.6-14.6); RBC Distribution Width SD 42.3 fl (35.1-43.9); Red Blood Count 2.49 M/mm3 (4.2-5.4); White Blood Count 21.6 K/mm3 (4.4-11.0)
[2022-07-17] MEDS: Acetaminophen 500 MG Tablet 1000 MG PO (06:24)
[2022-07-17] MEDS: Senna/Docusate Sodium 1 Tablet PO (06:24)
[2022-07-17 08:50] VITALS: BP 118/79; PULSE 81; RESP 16; TEMP 36.4
[2022-07-17] MEDS: 0.9% Saline Lock 10 ML Syringe IV ×2 (09:38→10:43)
--- NOTE | 2022-07-17 13:16 | PN.OBGYN_ITS ---
Subjective Subjective Patient doing well without complaints. Tolerating PO. Ambulating and voiding without difficulty. Feeding well. Denies chest pain, shortness of breath, calf pain/swelling, fevers, chills, lightheadedness. yesterday she appeared pale and passed a large blood clot. a cbc was performed and showed minimal drop in the hg , however wbc count was elevated. today the wbc count is improving but hg dropped to 7. pt remains asymptomatic and consents to an iron infusion. Objective Data Objective Data Vital Signs: Vital Signs Temp Pulse Resp BP Pulse Ox O2 Del Method 97.5 F L 81 16 118/79 97 Room Air 07/17/22 08:50 07/17/22 08:50 07/17/22 08:50 07/17/22 08:50 07/16/22 12:33 07/17/22 08:50 Oxygen Delivery Method Room Air Weight: 177 lb 11.081 oz Body Mass Index (BMI) 31.4 Intake & Output: Intake and Output for Last 24 Hours 07/15/22 07/16/22 07/17/22 23:59 23:59 23:59 Intake Total 503.33 / 503.33 1915.67 / 1915.67 115 / 115 Output Total 1450 / 1450 Balance 503.33 / 503.33 465.67 / 465.67 115 / 115 Lab / Micro Data Result Diagrams: 07/17/22 05:50 Labs: Laboratory Results - last 24 hr 07/16/22 18:05: WBC 23.5 H, RBC 3.37 L, Hgb 10.1 L, Hct 30.1 L, MCV 89.3, MCH 30.0, MCHC 33.6, RDW Std Deviation 41.8, RDW Coeff of Nacho 12.8, Plt Count 234, MPV 11.9, Immature Gran % (Auto) 0.900, Neut % (Auto) 87.4 H, Lymph % (Auto) 7.0 L, [place] % (Auto) 4.5, Eos % (Auto) 0.0, Baso % (Auto) 0.2, Absolute Neuts (auto) 20.6 H, Absolute Lymphs (auto) 1.64, Nucleated RBC % 0, Differential Comment SEE COMMENT, Platelet Estimate ADEQUATE, Plt Morphology Comment LARGE, RBC Morphology N CHROM, Anisocytosis RARE 07/17/22 05:50: WBC 21.6 H, RBC 2.49 L, Hgb 7.8 L, Hct 22.4 L, MCV 90.0, MCH 31.3, MCHC 34.8, RDW Std Deviation 42.3, RDW Coeff of Nacho 12.9, Plt Count 231, MPV 11.3 Micro: Microbiology 07/15/22 22:50 Nasal Secretion SARS-CoV-2 Antigen (Rapid) - Final ROS Constitutional Constitutional: Denies chills, fatigue, fever(s), poor appetite or weakness Eyes Eyes: Denies blurry vision, change in vision, seeing flashes or spots in vision ENT HEENT: Denies dizziness, headache(s), loss taste/smell or sore throat Cardiovascular Cardiovascular: Denies chest pain, dizziness, dyspnea, irregular heart rhythm, palpitations or rapid heart rate Respiratory/Chest Respiratory/Chest: Denies chest tightness, cough, dyspnea or breast pain Gastrointestinal Gastrointestinal: Denies abdominal pain, constipation or vomiting Genitourinary Genitourinary: Denies dysuria or flank pain Musculoskeletal Musculoskeletal: Denies difficulty walking, joint pain, limited range of motion or numbness Neurologic Neurologic: Denies abnormal movements, abnormal speech, dizziness, numbness, seizure-like activity or syncope Psychiatric Psychiatric: Denies anxiety, behavioral changes, change in appetite, confusion, depression or suicidal thoughts Physical Exam Const alert, oriented x3 and no apparent distress General Appearance: cooperative and comfortable Resp normal respiratory effort Cardio regular rate GI normal to inspection, nondistended, normoactive bowel sounds GI Narrative: uterus is firm below umbilicus Palpation: soft Back/Spine no CVA tenderness and thoraco-lumbar ROM normal Extremity normal to inspection, no clubbing, cyanosis or edema, no calf tenderness and no pedal edema Psych mental status grossly normal, thought process normal, cooperative, affect normal, speech normal, activity/motor behavior normal, denies homicidal ideation and denies suicidal ideation Assessment & Plan (1) Vaginal delivery: COMMENT: BRANDON ORELLANA IAL 40 PLAN: s/p PPD # 1 1. routine post delivery care 2. breast feeding- support given 3. rh positive 4. rubella immune 5. iron infusion today then dc to home if feels well.
[2022-07-17 13:18] VITALS: BP 113/72; PULSE 91; RESP 16; TEMP 37.2; O2SAT 100
--- NOTE | 2022-07-24 15:39 | NURSING ---
Follow up call done: Patient reports that things are going very well, was very happy and satisfied with her care. 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 But felt the nurses were great and always stepped in when needed. Loved the extensive support and was happy to come back and see marychuy in [facility]. Had questions about taking the baby to the fair so we talked about risks and what some pediatricians recommending (to avoid those environments for a month or so) discussed precautions that should be taken to keep baby free of illness.
== END 2022-07-17 15:25 | disposition home or self-care (01) | DRG 807 ==
LOC: WPOUT 22:38 → WP 22:38
PROVIDERS: Obstetrics & Gynecology; Admitting Provider Obstetrics & Gynecology; Visit Provider Obstetrics & Gynecology
DX: O32.8XX0 Maternal care for other malpresentation of fetus, not applicable or unspecified (principal); Z37.0 Single live birth; Z90.6 Acquired absence of other parts of urinary tract; O70.1 Second degree perineal laceration during delivery; O69.81X0 Labor and delivery complicated by cord around neck, without compression, not applicable or unspecified; Z82.79 Family history of other congenital malformations, deformations and chromosomal abnormalities; Z87.59 Personal history of other complications of pregnancy, childbirth and the puerperium; Z3A.39 39 weeks gestation of pregnancy
CPT/HCPCS: 59025; 59050; 85025; 85027; 86850; 86900; 86901; 87426; 99218; J1756; J7120; A4216; G0378; J3490

== ENCOUNTER → 2023-07-15 | Outpatient (CLI) | payer OTHER, SELFPAY ==
[2023-07-15 15:37] LABS: hCG Titer Quant., Serum 315 mIU/mL (1-3)
== END | disposition home or self-care (01) ==
PROVIDERS: Referring Provider Obstetrics & Gynecology; Visit Provider Obstetrics & Gynecology
DX: N91.2 Amenorrhea, unspecified (principal)
CPT/HCPCS: 36415; 84702

== ENCOUNTER → 2023-07-17 | Outpatient (CLI) | payer OTHER, SELFPAY ==
[2023-07-17 15:11] LABS: hCG Titer Quant., Serum 782 mIU/mL (1-3)
== END | disposition home or self-care (01) ==
LOC: PAVLAB 14:18
PROVIDERS: Referring Provider Obstetrics & Gynecology; Visit Provider Obstetrics & Gynecology
DX: N91.2 Amenorrhea, unspecified (principal)
CPT/HCPCS: 36415; 84702

== ENCOUNTER → 2023-08-13 | Outpatient (CLI) | payer OTHER, SELFPAY ==
[2023-08-15 22:07] LABS: Chlamydia By Nucleic Acid AMP Negative (Negative); Gonococcus By Nucleic Acid AMP Negative (Negative)
== END | disposition home or self-care (01) ==
LOC: LABSPEC 15:17
PROVIDERS: Referring Provider Obstetrics & Gynecology; Visit Provider Obstetrics & Gynecology
DX: O09.91 Supervision of high risk pregnancy, unspecified, first trimester (principal)
CPT/HCPCS: 87077; 87086; 87088; 87186; 87491; 87591

== ENCOUNTER → 2023-08-26 | Outpatient (CLI) | payer OTHER, SELFPAY ==
[2023-08-26 10:24] LABS: Absolute Lymphocyte Count 2.67 X10^3/uL (0.83-4.51); Basophil# 0.06 X10^3/uL; Basophil% 0.6 % (0-1); Eosinophil# 0.16 X10^3/uL; Eosinophils% 1.5 % (0-5); Hematocrit 37.9 % (37-47); Hemoglobin 12.6 g/dL (12.0-15.0); Lymphocyte # 2.67 X10^3/ul (0.83-4.51); Lymphocyte % 25.5 % (19-41); Mean Corp Hgb Conc 33.2 g/dL (32-36); Mean Corpuscular Hgb 29.8 pg (27.0-32.0); Mean Corpuscular Volume 89.6 fL (81-99); Mean Platelet Vol. 9.8 fl (6.2-12.0); Monocyte# 0.55 X10^3/uL; Monocyte% 5.3 % (0-10); NRBC Flagged by Analyzer 0 % (0-5); Neutrophil % 66.8 % (47-70); Platelet Count 274 K/mm3 (150-450); RBC Distribution Width CV 12.1 % (11.6-14.6); RBC Distribution Width SD 39.3 fl (35.1-43.9); Red Blood Count 4.23 M/mm3 (4.2-5.4); White Blood Count 10.5 K/mm3 (4.4-11.0)
[2023-08-26 11:20] LABS: NATERA MAILED SPECIMEN
[2023-08-26 11:51] LABS: HIV - WCH Non-Reactive (Nonreactive); Hepatitis B Surface Antigen Non-Reactive (Nonreactive); Hepatitis C Antibody Non-Reactive (Nonreactive); Rubella IgG Reactive (Nonreactive); Syphilis Antibodies Non-reactive
== END | disposition home or self-care (01) ==
PROVIDERS: Referring Provider Obstetrics & Gynecology; Visit Provider Obstetrics & Gynecology
DX: O09.521 Supervision of elderly multigravida, first trimester (principal); Z3A.00 Weeks of gestation of pregnancy not specified
CPT/HCPCS: 36415; 85025; 86703; 86762; 86780; 86803; 86850; 86900; 86901; 87340

== ENCOUNTER → 2023-09-10 | Outpatient (CLI) | payer OTHER, SELFPAY | END | disposition home or self-care (01) | PROVIDERS: Referring Provider Registered Nurse; Visit Provider Registered Nurse | DX: O23.40 Unspecified infection of urinary tract in pregnancy, unspecified trimester (principal); Z3A.00 Weeks of gestation of pregnancy not specified | CPT/HCPCS: 87086 ==

== ENCOUNTER → 2023-12-17 | Outpatient (CLI) | payer OTHER, SELFPAY ==
[2023-12-17 13:26] LABS: Absolute Lymphocyte Count 1.88 X10^3/uL (0.83-4.51); Absolute Neutrophil Count 9.4 X10^3/uL (2.0-7.7); Basophil# 0.05 X10^3/uL; Basophil% 0.4 % (0-1); Eosinophil# 0.46 X10^3/uL; Eosinophils% 3.7 % (0-5); Hematocrit 33.9 % (37-47); Hemoglobin 11.2 g/dL (12.0-15.0); Lymphocyte # 1.88 X10^3/ul (0.83-4.51); Lymphocyte % 15.1 % (19-41); Mean Corpuscular Hgb 30.6 pg (27.0-32.0); Mean Corpuscular Volume 92.6 fL (81-99); Mean Platelet Vol. 10.2 fl (6.2-12.0); Monocyte# 0.55 X10^3/uL; Monocyte% 4.4 % (0-10); NRBC Flagged by Analyzer 0 % (0-5); Neutrophil # 9.43 X10^3/uL (2.7-7.7); Neutrophil % 75.7 % (47-70); Platelet Count 230 K/mm3 (150-450); RBC Distribution Width CV 12.5 % (11.6-14.6); RBC Distribution Width SD 42.6 fl (35.1-43.9); Red Blood Count 3.66 M/mm3 (4.2-5.4); White Blood Count 12.5 K/mm3 (4.4-11.0)
[2023-12-17 13:54] LABS: Glucose Challenge Gest 1H 50g 164 mg/dL (70-140)
[2023-12-17 14:25] LABS: HIV - WCH Non-Reactive (Nonreactive); Syphilis Antibodies Non-reactive
== END | disposition home or self-care (01) ==
PROVIDERS: Obstetrics & Gynecology; Referring Provider Obstetrics & Gynecology; Visit Provider Obstetrics & Gynecology
DX: Z34.92 Encounter for supervision of normal pregnancy, unspecified, second trimester (principal); Z3A.21 21 weeks gestation of pregnancy
CPT/HCPCS: 36415; 82950; 85025; 86703; 86780

== ENCOUNTER → 2024-01-02 | Outpatient (CLI) | payer OTHER, SELFPAY ==
--- OUTSIDE RECORDS SUMMARY | 2024-01-02 07:09 | XMS RPT_ITS | CCD ---
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 Name Role Phone Free, Text Entry Unavailable Unavailable Vicenta Banks Unavailable Unavailable LOVE PEDRAZA Attending Unavailable BIBI MILAN Referring UnavailBIBI Aguila Primary Care Unavailcindy bonilla Allergies Allergy Classification Reported Allergen(s) Allergy Type Date of Onset Reaction(s) Facility (1 source) Morphine Drug Allergy Other [facility] Medications Current Medications Medication Drug Class(es) Dates Sig (Normalized) Sig (Original) alpha-tocopherol acetate 30 unt / ascorbic acid 100 mg / beta carotene 1000 unt / calcium carbonate 200 mg / calcium pantothenate 7 mg / cholecalciferol 400 unt / docusate sodium 25 mg / ferrous fumarate 29 mg / folic acid 1 mg / niacinamide 15 mg / pyridoxine hydrochloride 20 mg / riboflavin 3 mg / thiamine 3 mg / vitamin b12 0.012 mg / zinc oxide 20 mg oral tablet (1 source) Vitamin B12, Vitamin D, Vitamin C take 1 tablet by mouth once daily Prenatabs Rx oral tablet ; 1 tab(s) orally once a day Quantity: 0 Refills: 0 Ordered: 07-Feb-2022 Yani Armijo Generic Substitution Allowed fluticasone propionate 0.05 mg/actuat metered dose nasal spray (1 source) Corticosteroid Start: 02-07-2022 End: 02-20-2022 take 1 spray(s) nasal route twice daily Flonase 50 mcg/inh nasal spray ; 1 spray(s) in each nostril 2 times a day Quantity: 16 Refills: 0 Ordered: 07-Feb-2022 Vicenta Banks Start: 07-Feb-2022 End: 20-Feb-2022 Generic Substitution Allowed Comments: For the nose.It is very important that you take or use this exactly as directed. Do not skip doses or discontinue unless directed by your doctor. Problems Problem Classification Problem Date Documented Da te Episodic/Chronic Other upper respiratory infections (4 sources) Acute sinusitis; Translations: [Acute sinusitis, unspecified] 02-07-2022 Episodic Results Test Name Value Interpretation Reference Range Facil ity Vital Signs Date Time Vital Sign Value Performing Clinician Facility 02-07-2022 15:34-0400 Body height 160 cm Text Entry [facility] 02-07-2022 15:34-0400 Body temperature 98.06 [degF] Text Entry [facility] 02-07-2022 15:34-0400 Diastolic blood pressure 74 mm[Hg] Text Entry [facility] 02-07-2022 15:34-0400 Heart rate 80 /min Text Entry [facility] 02-07-2022 15:34-0400 SaO2% (BldA) [Mass fraction] 99 % Text Entry [facility] 02-07-2022 15:34-0400 Systolic blood pressure 115 mm[Hg] Text Entry [facility] Encounters Encounter Date Encounter Type Care Provider Facility Start: 10-23-2023 End: 10-23-2023 ambulatory [facility] Start: 02-07-2022 End: 02-07-2022 Emergency department patient visit Vicenta Banks [facility] Procedures Date Procedure Procedure Detail Performing Clinician Start: 09-25-2020 Follow-up visit Payers Date Payer Category Payer Unknown [id number] Unknown [employer] [place] Unknown [id number] Social History Date Type Detail Facility [facility] Tobacco smoking consumption unknown [facility] Summary Purpose Family History No Family History Records FoundNo Family History Records FoundNo Family History Records FoundNo Family History Records FoundNo Family History Records FoundNo Family History Records Found Advance Directives No Advanced Directives Records FoundNo Advanced Directives Records FoundNo Advanced Directives Records FoundNo Advanced Directives Records FoundNo Advanced Directives Records FoundNo Advanced Directives Records Found Additional Source Comments INFORMATION SOURCE (unrecogn ized section and content) DATE CREATED AUTHOR AUTHOR'S ORGANIZ ATION 09/26/2020 [facility] DATE CREATED AUTHOR AUTHOR'S ORGANIZ ATION 04/12/2021 [facility] DATE CREATED AUTHOR AUTHOR'S ORGANIZ ATION 04/12/2021 [facility] DATE CREATED AUTHOR AUTHOR'S ORGANIZ ATION 02/09/2022 formerly [facility] DATE CREATED AUTHOR AUTHOR'S ORGANIZ ATION 10/26/2023 [facility] <item> Privacy Markings (unrecogniz ed section and content) Section Author: Anusha Matthew PROHIBITION ON REDISCLOSURE OF CONFIDENTIAL INFORMATION This notice accompanies a disclosure of information concerning a client made to you with the consent of such client. FOR RECORDS PERTAINING TO PATIENTS WHO ARE OR HAVE BEEN ENROLLED IN A CHEMICAL DEPENDENCY/SUBSTANCEABUSE PROGRAM, SOME INFORMATION MAY BE OMITTED. This clinical summary was aggregated from multiple sources. Caution should be exercised in using it in the provision of clinical care. This summary normalizes information from multiple sources, and as a consequence, information in this document may materially change the coding, format and clinical context of patient data. In addition, data may be omitted in some cases. CLINICAL DECISIONS SHOULD BE BASED ON THE PRIMARY CLINICAL RECORDS. [facility]. provides no warranty or guarantee of the accuracy or completeness of information in this document.
[2024-01-02 08:57] LABS: Glucose GTT-Gestation. Fasting 82 mg/dL (<105)
[2024-01-02 09:02] LABS: Glucose GTT-Gestational 1 Hr 207 mg/dL (<190)
[2024-01-02 09:39] LABS: Glucose GTT-Gestational 2 Hr 188 mg/dL (<165)
[2024-01-02 11:24] LABS: Glucose GTT-Gestational 3 Hr 125 L (<145)
== END | disposition home or self-care (01) ==
LOC: LAB 07:05
PROVIDERS: Referring Provider Obstetrics & Gynecology; Visit Provider Obstetrics & Gynecology
DX: O99.810 Abnormal glucose complicating pregnancy (principal); Z3A.00 Weeks of gestation of pregnancy not specified
CPT/HCPCS: 36415; 82951; 82952

== ENCOUNTER → 2024-02-24 | Outpatient (CLI) | payer OTHER, SELFPAY | END | disposition home or self-care (01) | LOC: LABSPEC 13:05 | PROVIDERS: Referring Provider Obstetrics & Gynecology; Visit Provider Obstetrics & Gynecology | DX: Z34.90 Encounter for supervision of normal pregnancy, unspecified, unspecified trimester (principal) | CPT/HCPCS: 87081 ==

== ENCOUNTER 2024-03-02 11:05 | Outpatient (CLI) | payer OTHER, SELFPAY ==
[2024-03-02 11:19] VITALS: BMI 30.4
[2024-03-02 11:30] VITALS: BP 114/79; PULSE 67; RESP 16; TEMP 36.4
--- NOTE | 2024-03-02 13:59 | OB.TRI.PN_ITS ---
Progress Notes Date of Service: 03/02/24 Progress Note: Patient presents for triage evaluation secondary to questionable decel, here for prolonged monitoring FHT: 130 Moderate variability reactive no decelerations category I tracing [place]: q 2-4 Contractions Assessment and plan: false labor overall reassuring FHT Reactive NST, reassuring maternal and status patient discharged to home to follow-up as scheduled, BS reviewed, will start medication for poor control after meals. See problem list details for additional plan information. Assessment & Plan (1) Gestational diabetes mellitus (GDM) affecting , antepartum: COMMENT: start metfomin for reduced glucose control. 3500g EFW 36 weeks, 99% AC. recommend 38-39 week delivery per m due to reduced glucose control. 4x daily testing, nutrition consult. growth US at 36, delivery at 39
== END 2024-03-02 14:10 | disposition home or self-care (01) ==
LOC: WPOUT 11:10 → WP 11:11
PROVIDERS: Referring Provider Advanced Practice Midwife; Visit Provider Advanced Practice Midwife
DX: O47.03 False labor before 37 completed weeks of gestation, third trimester (principal); Z3A.36 36 weeks gestation of pregnancy; O24.419 Gestational diabetes mellitus in pregnancy, unspecified control
CPT/HCPCS: 59025; 59050; 99221; G0378

== ENCOUNTER 2024-03-05 09:10 | Outpatient (CLI) | payer OTHER, SELFPAY ==
[2024-03-05 09:15] VITALS: BMI 30.8
[2024-03-05 09:26] VITALS: PULSE 93; O2SAT 98
[2024-03-05 09:27] VITALS: BP 117/77; PULSE 80; RESP 15; TEMP 36.3; O2SAT 100
[2024-03-05 09:57] LABS: Bedside Glucose 79 mg/dL (74-106)
--- NOTE | 2024-03-09 09:47 | OB.TRI.PN ---
Progress Notes Progress Note: sent down for rule out labor no cervical change, reactive nst. dc home labor precautions. reassuring status. Laboratory Studies: Laboratory Tests 03/05/24 Range/Units 09:38 POC Glucose 79 (74-106) mg/dL
== END 2024-03-05 11:55 | disposition home or self-care (01) ==
LOC: WPOUT 09:13 → WP 09:14
PROVIDERS: Referring Provider Advanced Practice Midwife; Visit Provider Advanced Practice Midwife
DX: O47.9 False labor, unspecified (principal); Z3A.00 Weeks of gestation of pregnancy not specified
CPT/HCPCS: 59025; 59050; 82962; 99221; G0378

== ENCOUNTER 2024-03-09 09:48 | Inpatient (IN) | payer OTHER, SELFPAY ==
[2024-03-09] VITALS (63 sets, daily range): BP systolic 102–141; BP diastolic 56–90; PULSE 59–245; RESP 16–18; TEMP 35.2–36.9; O2SAT 82–100; BMI 33.9
[2024-03-09 10:08] LABS: Absolute Lymphocyte Count 2.16 X10^3/uL (0.83-4.51); Absolute Neutrophil Count 9.8 X10^3/uL (2.0-7.7); Basophil# 0.06 X10^3/uL; Basophil% 0.5 % (0-1); Eosinophil# 0.14 X10^3/uL; Eosinophils% 1.1 % (0-5); Hematocrit 36.2 % (37-47); Hemoglobin 12.3 g/dL (12.0-15.0); Lymphocyte # 2.16 X10^3/ul (0.83-4.51); Lymphocyte % 16.7 % (19-41); Mean Corpuscular Hgb 30.4 pg (27.0-32.0); Mean Corpuscular Volume 89.6 fL (81-99); Mean Platelet Vol. 11.3 fl (6.2-12.0); Monocyte# 0.73 X10^3/uL; Monocyte% 5.6 % (0-10); NRBC Flagged by Analyzer 0 % (0-5); Neutrophil # 9.78 X10^3/uL (2.7-7.7); Neutrophil % 75.5 % (47-70); Platelet Count 249 K/mm3 (150-450); RBC Distribution Width CV 13.2 % (11.6-14.6); RBC Distribution Width SD 43.2 fl (35.1-43.9); Red Blood Count 4.04 M/mm3 (4.2-5.4)
[2024-03-09] MEDS: LACTATED RINGERS 500 ML 999 ML IV (11:10)
[2024-03-09 11:14] LABS: Syphilis Antibodies Non-reactive
[2024-03-09] MEDS: Lactated Ringers 1,000 ML 50 ML IV (11:41)
[2024-03-09] MEDS: fentaNYL-bupivacaine (epidural) 100 ML BAG EPIDURAL (12:27)
--- NOTE | 2024-03-09 12:29 | HP.PCM.OB_ITS ---
HPI - General General Date of Admission: 03/09/24 HPI Narrative TONO CAR, is a 34 F who presents IAL regular ctx made change to 6 cm no vb lof admits good fm Maternal Data Information NAKUL Calculator Estimated Delivery Date Method Current WG Current Estimate 03/20/24 LMP (Certain) 38w 3d PFSH [facility] Medical History (Updated 03/09/24 @ 15:[address] Kristi Oseguera MD) Abnormal glucose affecting Ectopic Gestational diabetes History of miscarriage Placental abnormality Home Medications multivitamin no.47-iron fum 27 mg-folate no.1 1 mg-dha 300 mg capsule (PNV-DHA) 1 cap PO DAILY 07/30/21 [History Last Taken 03/08/24 21:00] blood sugar diagnostic (Blood Glucose Test strips) #120 ea 01/02/24 [Rx Last Taken Unknown] blood-glucose meter #1 ea 01/02/24 [Rx Last Taken Unknown] lancets #200 ea 01/02/24 [Rx Last Taken Unknown] metformin 500 mg tablet 500 mg PO DAILY GDM #14 tabs 03/02/24 [Rx Last Taken 03/08/24 21:00] Allergy/AdvReac Type Severity Reaction Status Date / Time morphine AdvReac Other Verified 03/08/24 13:42 Family History Grandmother Breast cancer Cancer Surgical History History of total cystectomy Social History Smoking Status: Never smoker alcohol intake: current alcohol intake frequency: a few times a month Alcohol type: beer details: not while substance use type: does not use caffeine: Yes what type of physical activity do you participate in: none seatbelt use: always do you feel safe at home: Yes additional social history: - [employer]- [employer]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 Date Name GA/Weeks Outcome Route Bth Weight Gen Labor Lgth Anesthesia Del Locatn Provider FOB 07/16/22 Agatha 39 live - full term vacuum 8 lbs 7 oz Female [facility] Dr. Oumar Garcia Visit Details Expected Delivery Route/Plan DOC only Labor Preferences- CB/BF classes: done in past labor support person: [] labor intervention preferences: [] pain management options preferred: epidural cut cord/dad catch: [] : [] PP control planned: [] discussed possible routes of delivery and associated risks: [] special requests: [] Plans Covid status: declined Flu vaccine: declined Tdap vaccine: declined Rhogam: na LARC form signed: declined movement and labor precautions reviewed. Problem list reviewed and updated with the most current plan of care details and appropriate orders placed. Relevant counseling for the gestational age provided. Continue routine care and follow up unless otherwise noted in visit notes/problem list details OB Flowsheet Initial Weight: 144 lb Date -?-?-?-?-?-?-?--?-?-?-?-?- EGA Weight BP Urine Prot -?-?-?-?-?-?-?-?-?-?-?-?- Glucose FHR FuHt Pres Dilation -?-?-?-?-?-?-?-?-?-?-?-?- Effaced St Visit Note 08/13/23 -?-?-?-?-?-?-?-?-?-?-?-?- 8w 4d 144 lb 8 oz (+8 oz) 126/76 -?-?-?-?-?-?-?-?-?-?-?-?- 180 -?-?-?-?-?-?-?-?-?-?-?-?- JV- CRL consiste nt with LMP. desires NIPT. no nausea, no complaints. 09/10/23 -?-?--?-?-?-?-?-?-?-?-?-?- 12w 4d 149 lb 2 oz (+5 lb 2 oz) 124/82 Negative -?-?-?-?-?-?-?-?-?-?-?-?- Negative 160 -?-?-?-?-?-?-?-?-?-?-?-?- LC- no vb/crampi ng. normal nob. low risk nipt. its a GIRL! FHR via handheld us LC- no vb/cramping. normal n ob. low risk nipt. its a GIRL! FHR via handheld us. declines afp. 10/13/23 -?-?-?-?-?-?-?-?-?-?-?-?- 17w 2d 152 lb 8 oz (+8 lb 8 oz) 130/78 Negative -?-?-?-?-?-?-?-?-?-?-?-?- Negative 155 -?-?-?-?-?-?-?-?-?-?-?-?- JV- no cramping or spotting. ultrasound scheduled 10/23. 11/13/23 -?-?-?-?-?-?-?-?-?-?-?-?- 21w 5d 161 lb 8 oz (+17 lb 8 oz) 106/74 Negative -?-?-?-?-?-?-?-?-?-?-?-?- Negative 140 -?-?-?-?-?-?-?-?-?-?-?-?- SM- no vb crmapi ng 12/17/23 -?-?-?-?-?-?--?-?-?-?-?-?- 26w 4d 166 lb 4 oz (+22 lb 4 oz) 112/75 Negative -?-?-?-?-?-?-?-?-?-?-?-?- Negative 150 43 -?-?-?-?-?-?-?-?-?-?-?-?- JV- no lof, vagi nal bleeding, or dec fm. 01/02/24 -?-?-?-?-?-?-?-?-?-?-?-?- 28w 6d 170 lb (+26 lb) 128/77 Negative -?--?-?-?-?-?-?-?-?-?-?-?- Negative 140 28 -?-?-?-?-?-?-?-?-?-?-?-?- kw- no lof/vb/ct x. good fm. failed 3 hour. discussed POC. 01/13/24 -?-?-?-?-?-?-?-?-?-?-?-?- 30w 3d 168 lb (+24 lb) 127/82 Negative -?-?-?-?-?-?-?-?-?-?-?-?- Negative 140 30 -?-?-?-?-?-?-?-?-?-?-?-?- SM- no vb lof go od fm no regular ctx wel controlled BS with diet, discussed several RFs in will plan on weekly nsts after 36 and delivery by 39- 40, patient requesitng doc only delivery. 01/27/24 -?-?-?-?-?-?-?-?-?-?-?-?- 32w 3d 169 lb 8 oz (+25 lb 8 oz) 132/80 Negative -?-?-?-?-?-?-?-?-?-?-?-?- Negative 140 33 -?-?-?-?-?-?-?-?-?-?-?-?- SM- no vb lof go od fm no reuglar ctx 02/12/24 -?-?-?-?-?-?-?-?-?-?-?-?- 34w 5d 173 lb 6 oz (+29 lb 6 oz) 122/79 Negative -?-?-?-?-?-?-?-?-?-?-?-?- Negative 140 34 Cephalic 0 -?-?-?-?-?-?-?-?-?-?-?-?- SM- no vb of goo d fm no regular ctx thought she lost her mucous plus 02/24/24 -?-?-?-?-?-?-?-?-?-?-?-?- 36w 3d 172 lb 6 oz (+28 lb 6 oz) 117/75 Trace -?-?-?-?-?-?-?-?-?-?-?-?- Negative 140 -?-?-?-?-?-?-?-?-?-?-?-?- SM- discussed la rge EFW will be 4250g at 39 weeks, await formal report to see if any additional recommendations. discussed IOL vs primary csection, patient prefers [place] for vaginal dleiveyr at this time. discussed risks of larger EFW, discussed preivous delivery with over 8 lb baby without issue, and vacuum was used. likely would not recommend vacuum with this delivery. 03/02/24 -?-?-?-?-?-?-?-?-?-?-?-?- 37w 3d 175 lb 2 oz (+31 lb 2 oz) 116/77 Negative -?-?-?-?-?-?-?-?-?-?-?-?- Negative 150 38 Cephalic 0 -?-?-?-?-?-?-?-?-?-?-?-?- JV- NST shows 2 late decels. KATIE is 16 baby is vertex. last growth shows baby in >99th%. sending to L&D for likely IOL for the late decels, however patient's cervix is closed. 03/05/24 -?-?-?-?-?-?-?-?-?-?-?-?- 37w 6d 175 lb 8 oz (+31 lb 8 oz) 130/87 Negative -?-?-?-?-?-?-?-?-?-?-?-?- Negative Cephalic 1 .5 -?-?-?-?-?-?-?-?-?-?-?-?- 70 -3 JV- patien t is having contractions and has started dilating. external os is 2cm. she started on metformin 3 days ago and fasting levels are still 98-99. sending to l&D to rule out labor. if not in labor, patient is to take her metformin at bedtime. JV- patient is having contra ctions and has started dilating. external os is 2cm. she started on metformin 3 days ago and fasting levels are still 98-99. sending to l&D to rule out labor. if not in labor, patient is to take her metformin at bedtime. likely will deliver next week for reduced glucose control. 03/08/24 -?-?-?-?-?-?-?-?-?-?-?-?- 38w 2d 174 lb (+30 lb) 116/83 Negative -?-?-?-?-?-?-?-?-?-?-?-?- Negative 140 39 Cephalic 4 -?-?-?-?-?-?-?-?-?-?-?-?- 60 -2 SM- metfor min started, some BS still elevated- will proceed with delivery as per mfm recommendations last week NST FHR Rate Baby A Baseline: 140 Variability:: Moderate Accelerations:: 15 x 15 Decelerations:: None NST Reactive:: Yes FHR Category:: Category I Uterine Activity:: q3-5 ROS Constitutional Constitutional: Reports systems reviewed and no addt'l complaints, except as documented ENT HEENT: Reports systems reviewed and no addt'l complaints, except as documented Cardiovascular Cardiovascular: Reports systems reviewed and no addt'l complaints, except as documented Respiratory/Chest Respiratory/Chest: Reports systems reviewed and no addt'l complaints, except as documented Gastrointestinal Gastrointestinal: Reports systems reviewed and no addt'l complaints, except as documented and nausea; Denies abdominal pain Genitourinary Genitourinary: Reports systems reviewed and no addt'l complaints, except as documented, contractions Details: present and frequency (regular ) and movement Details: present Musculoskeletal Musculoskeletal: Reports systems reviewed and no addt'l complaints, except as documented Integumentary Integumentary: Reports as per HPI Neurologic Neurologic: Reports systems reviewed and no addt'l complaints, except as documented Endocrine Endocrinology: Reports systems reviewed and no addt'l complaints, except as documented Vital Signs Vital Signs Vital Signs: 03/09/24 08:01 03/09/24 08:01 03/09/24 08:02 Temperature 97.0 F L Temperature Source Pulse Rate 82 Respiratory Rate Blood Pressure 116/77 BP Systolic 116 BP Diastolic 77 Pulse Ox 03/09/24 08:01 03/09/24 09:25 03/09/24 09:25 Temperature 95.4 F L Temperature Source Pulse Rate 80 Respiratory Rate Blood Pressure 128/75 H BP Systolic 128 BP Diastolic 75 Pulse Ox 03/09/24 09:52 03/09/24 09:52 03/09/24 09:52 Temperature Temperature Source Pulse Rate 61 63 Respiratory Rate Blood Pressure 116/76 BP Systolic 116 BP Diastolic 76 Pulse Ox 03/09/24 09:52 03/09/24 09:55 03/09/24 09:53 Temperature 97.2 F L Temperature Source Temporal Pulse Rate Respiratory Rate Blood Pressure BP Systolic BP Diastolic Pulse Ox 100 03/09/24 09:53 03/09/24 09:53 03/09/24 09:53 Temperature Temperature Source Pulse Rate 70 Respiratory Rate 18 Blood Pressure BP Systolic BP Diastolic Pulse Ox 100 03/09/24 09:53 03/09/24 09:57 03/09/24 09:57 Temperature 97.2 F L Temperature Source Pulse Rate 65 Respiratory Rate Blood Pressure BP Systolic BP Diastolic Pulse Ox 100 03/09/24 11:55 03/09/24 11:55 03/09/24 12:00 Temperature Temperature Source Pulse Rate 69 Respiratory Rate Blood Pressure 126/79 H BP Systolic 126 BP Diastolic 79 Pulse Ox 100 03/09/24 12:00 03/09/24 12:00 03/09/24 12:05 Temperature Temperature Source Pulse Rate 76 Respiratory Rate Blood Pressure 141/90 H BP Systolic 141 BP Diastolic 90 Pulse Ox 100 03/09/24 12:05 03/09/24 12:05 03/09/24 12:10 Temperature Temperature Source Pulse Rate 75 Respiratory Rate Blood Pressure 117/76 BP Systolic 117 BP Diastolic 76 Pulse Ox 100 03/09/24 12:10 03/09/24 12:10 03/09/24 12:10 Temperature Temperature Source Pulse Rate 73 75 Respiratory Rate Blood Pressure BP Systolic BP Diastolic Pulse Ox 100 03/09/24 12:15 03/09/24 12:15 03/09/24 12:15 Temperature Temperature Source Pulse Rate 64 Respiratory Rate Blood Pressure 115/76 BP Systolic 115 BP Diastolic 76 Pulse Ox 100 03/09/24 12:22 03/09/24 12:22 03/09/24 12:25 Temperature Temperature Source Pulse Rate 76 Respiratory Rate Blood Pressure 110/59 L 112/56 L BP Systolic 110 112 BP Diastolic 59 56 Pulse Ox 03/09/24 12:25 Temperature Temperature Source Pulse Rate 69 Respiratory Rate Blood Pressure BP Systolic BP Diastolic Pulse Ox Weight Weight: 173 lb 11.588 oz Body Mass Index (BMI) 33.9 Physical Exam Const alert, oriented x3 and healthy appearing Constitutional Narrative: uncomfortable with contractions HEENT normocephalic and moist oral mucous membranes Head and Scalp: atraumatic Neck full ROM, no lymphadenopathy, supple and thyroid normal General: trachea midline Thyroid: thyroid normal Lymph Lymphatic: no lymphadenopathy noted Chest inspection of chest normal Resp normal respiratory effort Cardio regular rate GI normal to inspection, nondistended, normoactive bowel sounds, soft to palpation and non-tender Inspection: gravid external exam normal Bimanual Exam - Vag & Uterus: uterus non-tender Manual OB Exam: estimated gestational size appropriate, presentation cephalic, dilated, effaced and station Extremity normal to inspection General Extremity: Negative for edema Skin no rashes or lesions noted Neuro deep tendon reflexes 2+ bilaterally Motor Exam: strength 5/5 throughout and clonus absent Psych mental status grossly normal Labs Labs Labs: Blood Type A POSITIVE Antibody Screen NEGATIVE Hct 36.2 % (37-47) L Hgb 12.3 g/dL (12.0-15.0) Obstetrics Ultrasound Syphilis Total Ab Non-reactive Rubella IgG Antibody Reactive (Nonreactive) Hep Bs Antigen Non-Reactive (Nonreactive) Hepatitis C Antibody Non-Reactive (Nonreactive) Chlamydia DNA (PAZ) Negative (Negative) N.gonorrhoeae DNA (PAZ) Negative (Negative) HIV 1&2 Antibody Non-Reactive (Nonreactive) Glucose 1 Hr 50 gm 164 mg/dL (70-140) H Gest Glucose Tolerance MG/DL Rhogam given: No Miscellaneous Test Assessment & Plan (1) Gestational diabetes mellitus (GDM) affecting , antepartum: COMMENT: start metfomin for reduced glucose control. 3500g EFW 36 weeks, 99% AC. recommend 38-39 week delivery per [facility] due to reduced glucose control. 4x daily testing, nutrition consult. growth US at 36, delivery at 39 (2) Marginal insertion of umbilical cord: COMMENT: growth US at 32 weeks:EFW 68%. HC 48%. 36w:90 (3) UTI (urinary tract infection) during : COMMENT: NOB visit. re culture in 4 weeks -negative (4) AMA (advanced maternal age) multigravida 35+: COMMENT: low risk NIPT, delivery at 39 (5) Supervision of high risk in first trimester: COMMENT: PRR NAKUL: 03/20/24 girl ARLETTE Snider : Jose (6) : QUALIFIERS: Weeks of gestation: 38 weeks Qualified Code(s): Z3A.38 - 38 weeks gestation of COMMENT: DOC ONLY. NIPT low risk, declined carrier and ntd screening, anatomy reviewed (7) Family history of Down syndrome: COMMENT: Patient's nephew (8) Active labor at term: PLAN: Plan Patient presents IAL, plan expectant management for , pitocin/AROM PRN if needed. Pain management: plans epidural. GBS neg. Management of any complications: diabetes I have reviewed the [facility] and made any clinically relevant updates.
[2024-03-09 14:06] LABS: Bedside Glucose 64 mg/dL (74-106)
[2024-03-09 15:21] LABS: Bedside Glucose 64 mg/dL (74-106)
--- NOTE | 2024-03-09 15:23 | OP.PCM_ITS ---
Assessment & Plan (1) Active labor at term: (2) Gestational diabetes mellitus (GDM) affecting , antepartum: COMMENT: start metfomin for reduced glucose control. 3500g EFW 36 weeks, 99% AC. recommend 38-39 week delivery per m due to reduced glucose control. 4x daily testing, nutrition consult. growth US at 36, delivery at 39 (3) Marginal insertion of umbilical cord: COMMENT: growth US at 32 weeks:EFW 68%. HC 48%. 36w:90 (4) UTI (urinary tract infection) during : COMMENT: NOB visit. re culture in 4 weeks -negative (5) AMA (advanced maternal age) multigravida 35+: COMMENT: low risk NIPT, delivery at 39 (6) Supervision of high risk in first trimester: COMMENT: PRR NAKUL: 03/20/24 girl ARLETTE Snider : Jose (7) : QUALIFIERS: Weeks of gestation: 38 weeks Qualified Code(s): Z3A.38 - 38 weeks gestation of COMMENT: DOC ONLY. NIPT low risk, declined carrier and ntd screening, anatomy reviewed (8) Family history of Down syndrome: COMMENT: Patient's nephew (9) Vaginal delivery: COMMENT: SM girl Patti 38 IAL GDMA2 Maternal Data Information NAKUL Calculator Estimated Delivery Date Method Current WG Current Estimate 03/20/24 LMP (Certain) 38w 3d Vaginal Delivery Operative Information Date of Procedure: 03/09/24 Pre-Operative Diagnosis: see a/p diagnoses Post-Operative Diagnosis: same Surgery / Procedure Performed: Spontaneous Vaginal Delivery Type of Anesthesia: Epidural Special Medications: none Estimated Blood Loss: 200 Fluids Replaced: crystalloid Findings Description of Procedure: Patient began pushing and delivered the head in the IRA presentation. The head was delivered atraumatically. The anterior and posterior shoulders delivered without complication followed by the rest of the infant and the was placed on the maternal abdomen. Delayed cord clamping was employed for approximately 60 seconds. Cord was clamped and cut and gentle traction was applied to the cord and the placenta delivered spontaneously immediately following it was noted to be intact with three-vessel cord. The perineum and vagina were inspected and noted to have a second degree perineal laceration which was repaired in the usual fashion with 3-0 vicryl rapide. . EBL was 200 cc. Patient and infant tolerated delivery well. Amniotic Fluid Description: Clear Placental Delivery Description: Spontaneous Placenta Disposition: [facility] Cord Vessel Description: 3 Vessels Cord Entanglement: None Delayed Cord Clamping: Yes Post Vaginal Delivery Medications Given After Delivery: IV Pitocin Episiotomy Description: None Complication Complications: None Procedures Urinary/Genital [id number]: [id number] Vaginal Delivery [facility]
--- NOTE | 2024-03-09 15:27 | DCINST_ITS ---
Discharge Instructions Diet Discharge Diet: No restrictions Activity Discharge Activity: Return to Normal Activity, May Not Drive (while taking narcotic pain medications.) and May Shower May resume sexual activity in: 4-6 weeks Dressing / Incision Call your doctor if your incision/area has: Continuous Slow Oozing, Sudden Increased Bleeding, Increased Pain/ Swelling, Increased Redness and Foul Smelling Discharge Follow Up Care Please Follow Up With: Kristi Oseguera MD When: Call [phone] to make an appointment with your doctor in 6 weeks. If you had elevated blood pressure or 4th degree laceration, you will need to be seen in 2 weeks. Test Results: Test results from this visit will be discussed in further detail at your follow- up appointment, if applicable. Discharge Plan Admission Admit Date/Time: 03/09/24 09:48 Attending Provider: Kristi Oseguera Primary Care Provider: Care Physician,Yolanda Primary Discharge Orders/Prescriptions Prescriptions: No Action PNV-DHA 27 mg iron-1 mg -300 mg capsule 1 cap PO DAILY (DME) Blood Glucose Test Strip See Rx Instructions .MEDSUPPLY Qty: 120 5RF Rx Instructions: As directed-fasting & 2 hr post meals (DME) blood-glucose meter Misc See Rx Instructions miscellaneous .MEDSUPPLY Qty: 1 0RF Rx Instructions: As directed (DME) lancets Misc See Rx Instructions .MEDSUPPLY Qty: 200 5RF Rx Instructions: As directed-fasting & 2 hr post meals metformin 500 mg tablet 500 mg PO DAILY Qty: 14 0RF Referrals / Follow Up: Care Physician,No Primary [Primary Care Provider] - Disposition Disposition (needs filled in before D/C Order can be placed): Home, Self Care
[2024-03-09] MEDS: Oxytocin 15 Units/NS 250ml 15 UNITS/250 ML IV.SOLN 83 UNITS IV (15:50)
[2024-03-09 17:57] LABS: Bedside Glucose 84 mg/dL (74-106)
[2024-03-09] MEDS: Naproxen 500 MG Tablet PO (22:04)
[2024-03-10] VITALS (11 sets, daily range): BP systolic 108–126; BP diastolic 67–83; PULSE 60–68; RESP 15–17; TEMP 36.5–36.8; O2SAT 96–98
[2024-03-10] MEDS: Acetaminophen 500 MG Tablet 1000 MG PO (01:02)
[2024-03-10 05:59] LABS: Bedside Glucose 77 mg/dL (74-106)
[2024-03-10] MEDS: Naproxen 500 MG Tablet PO ×3 (06:33→22:40)
--- NOTE | 2024-03-10 07:54 | PCM.PN.OB ---
Subjective Subjective Patient doing well without complaints. Tolerating PO. Ambulating and voiding without difficulty. Feeding well. Denies chest pain, shortness of breath, calf pain/swelling, fevers, chills, lightheadedness. Objective Data Objective Data Vital Signs: Vital Signs Temp Pulse Resp BP Pulse Ox O2 Del Method 98.2 F 60 16 125/83 H 98 Room Air 03/10/24 04:30 03/10/24 07:46 03/10/24 04:30 03/10/24 07:46 03/10/24 00:13 03/10/24 00:13 Oxygen Delivery Method Room Air Weight: 173 lb 11.588 oz Body Mass Index (BMI) 33.9 Intake & Output: Intake and Output for Last 24 Hours 03/08/24 03/09/24 03/10/24 23:59 23:59 23:59 Intake Total 1484.99 / 1484.99 Output Total 1100 / 1100 600 / 600 Balance 384.99 / 384.99 -600 / -600 Lab / Micro Data 03/09/24 09:45 Labs: Laboratory Results - last 24 hr 03/09/24 09:45: WBC 13.0 H, RBC 4.04 L, Hgb 12.3, Hct 36.2 L, MCV 89.6, MCH 30.4, MCHC 34.0, RDW Std Deviation 43.2, RDW Coeff of Nacho 13.2, Plt Count 249, MPV 11.3, Immature Gran % (Auto) 0.600, Neut % (Auto) 75.5 H, Lymph % (Auto) 16.7 L, Willacy % (Auto) 5.6, Eos % (Auto) 1.1, Baso % (Auto) 0.5, Absolute Neuts (auto) 9.8 H, Absolute Lymphs (auto) 2.16, Nucleated RBC % 0, Syphilis Total Ab Non-reactive, Blood Type A POSITIVE, Antibody Screen NEGATIVE 03/09/24 13:29: POC Glucose 64 L 03/09/24 14:57: POC Glucose 64 L 03/09/24 17:38: POC Glucose 84 03/10/24 04:50: POC Glucose 77 ROS Constitutional Constitutional: Denies chills, fatigue, fever(s), poor appetite or weakness Eyes Eyes: Denies blurry vision, change in vision, seeing flashes or spots in vision ENT HEENT: Denies dizziness, headache(s), loss taste/smell or sore throat Cardiovascular Cardiovascular: Denies chest pain, dizziness, dyspnea, irregular heart rhythm, palpitations or rapid heart rate Respiratory/Chest Respiratory/Chest: Denies chest tightness, cough, dyspnea or breast pain Gastrointestinal Gastrointestinal: Denies abdominal pain, constipation or vomiting Genitourinary Genitourinary: Denies dysuria or flank pain Musculoskeletal Musculoskeletal: Denies difficulty walking, joint pain, limited range of motion or numbness Neurologic Neurologic: Denies abnormal movements, abnormal speech, dizziness, numbness, seizure-like activity or syncope Psychiatric Psychiatric: Denies anxiety, behavioral changes, change in appetite, confusion, depression or suicidal thoughts Physical Exam Const alert, oriented x3 and no apparent distress General Appearance: cooperative and comfortable Resp normal respiratory effort Cardio regular rate GI normal to inspection, nondistended, normoactive bowel sounds GI Narrative: uterus is firm below umbilicus Palpation: soft Back/Spine no CVA tenderness and thoraco-lumbar ROM normal Extremity normal to inspection, no clubbing, cyanosis or edema, no calf tenderness and no pedal edema Psych mental status grossly normal, thought process normal, cooperative, affect normal, speech normal, activity/motor behavior normal, denies homicidal ideation and denies suicidal ideation Assessment & Plan (1) Vaginal delivery: COMMENT: SM girl Patti 38 IAL GDMA2 (2) Gestational diabetes mellitus (GDM) affecting , antepartum: COMMENT: start metfomin for reduced glucose control. 3500g EFW 36 weeks, 99% AC. recommend 38-39 week delivery per [facility] due to reduced glucose control. 4x daily testing, nutrition consult. growth US at 36, delivery at 39 PLAN: Plan s/p PPD #1 1. routine post delivery care 2. breast feeding- support given 3. rh positive 4. rubella immune 5. plan for dc to home tomorrow as delivered after 3pm yesterday
[2024-03-11 01:42] VITALS: PULSE 72; O2SAT 90
[2024-03-11 01:43] VITALS: BP 116/74; PULSE 60; PULSE 66; RESP 18; TEMP 36.3; O2SAT 97
--- NOTE | 2024-03-11 08:01 | PN.OBGYN_ITS ---
Subjective Subjective Patient doing well without complaints. Tolerating PO. Ambulating and voiding without difficulty. Feeding well. Denies chest pain, shortness of breath, calf pain/swelling, fevers, chills, lightheadedness. Objective Data Objective Data Vital Signs: Vital Signs Temp Pulse Resp BP Pulse Ox O2 Del Method 97.4 F L 66 18 116/74 97 Room Air 03/11/24 01:43 03/11/24 01:43 03/11/24 01:43 03/11/24 01:43 03/11/24 01:43 03/11/24 01:43 Oxygen Delivery Method Room Air Weight: 173 lb 11.588 oz Body Mass Index (BMI) 33.9 Intake & Output: Intake and Output for Last 24 Hours 03/09/24 03/10/24 03/11/24 23:59 23:59 23:59 Intake Total 1484.99 / 1484.99 Output Total 1100 / 1100 600 / 600 Balance 384.99 / 384.99 -600 / -600 Lab / Micro Data Attestation: I reviewed the patient's lab results. 03/09/24 09:45 ROS Constitutional Constitutional: Reports systems reviewed and no addt'l complaints, except as documented; Denies anorexia or headache(s) Cardiovascular Cardiovascular: Reports systems reviewed and no addt'l complaints, except as documented; Denies dizziness, dyspnea, nausea or tachypnea Respiratory/Chest Respiratory/Chest: Reports systems reviewed and no addt'l complaints, except as documented; Denies cough, dyspnea, shortness of breath at rest or tachypnea Gastrointestinal Gastrointestinal: Reports systems reviewed and no addt'l complaints, except as documented; Denies abdominal pain, constipation or nausea Genitourinary Genitourinary: Reports systems reviewed and no addt'l complaints, except as documented; Denies burning urination, difficulty urinating, dysuria, urinary frequency or urinary incontinence Musculoskeletal Musculoskeletal: Reports systems reviewed and no addt'l complaints, except as documented Integumentary Integumentary: Reports systems reviewed and no addt'l complaints, except as documented Neurologic Neurologic: Reports systems reviewed and no addt'l complaints, except as documented; Denies abnormal speech, dizziness or headache(s) Psychiatric Psychiatric: Reports systems reviewed and no addt'l complaints, except as documented Endocrine Endocrinology: Reports systems reviewed and no addt'l complaints, except as documented Hematologic/Lymphatic Hematologic/Lymphatic: Reports systems reviewed and no addt'l complaints, except as documented Physical Exam Const alert, oriented x3 and no apparent distress Neck full ROM Resp normal respiratory effort, normal air movement and no retractions Effort and Inspection: able to speak in complete sentences and symmetric chest movement GI soft to palpation Bladder / Kidney Exam: bladder normal to palpation Uterus Palpation: uterus fundus firm Extremity normal to inspection and full ROM Psych mental status grossly normal, thought process normal and cooperative Assessment & Plan (1) Vaginal delivery: COMMENT: girl Patti 37 IAL GDMA2 PLAN: s/p PPD # 2 1. routine post delivery care 2. breast feeding- support given 3. rh positive 4. rubella immune 5. discharge home (2) Gestational diabetes mellitus (GDM) affecting , antepartum: COMMENT: start metfomin for reduced glucose control. 3500g EFW 36 weeks, 99% AC. recommend 38-39 week delivery per [facility] due to reduced glucose control. 4x daily testing, nutrition consult. growth US at 36, delivery at 39 Charges/Coding Multi Select Codes Urinary/Genital Urinary/Genital CPT Codes: No Charge
--- NOTE | 2024-03-11 08:03 | PCM.DC.SUM ---
Providers Date of Admission: 03/09/24 Date of Discharge: 03/11/24 Primary Care Physician: No Primary Care Phys Reason For Visit: VAGINAL DELIVERY Diagnosis Discharge Diagnosis (1) Vaginal delivery: Status: Acute Code(s): O80 - Encounter for full-term uncomplicated delivery Plan: s/p PPD # 2 1. routine post delivery care 2. breast feeding- support given 3. rh positive 4. rubella immune 5. discharge home (2) Gestational diabetes mellitus (GDM) affecting , antepartum: Status: Acute Code(s): O24.419 - Gestational diabetes mellitus in , unspecified control Medications at Discharge Home Medications multivitamin no.47-iron fum 27 mg-folate no.1 1 mg-dha 300 mg capsule (PNV-DHA) 1 cap PO DAILY 07/30/21 blood sugar diagnostic (Blood Glucose Test strips) #120 01/02/24 blood-glucose meter #1 ea 01/02/24 lancets #200 01/02/24 metformin 500 mg tablet 500 mg PO DAILY GDM #14 tabs 03/02/24 Hospital Course Operations None Procedures None Summary of Care Provided Minutes Spent on Discharge: 30 Physical Exam Const alert, oriented x3 and no apparent distress Neck full ROM Resp normal respiratory effort, normal air movement and no retractions Effort and Inspection: able to speak in complete sentences and symmetric chest movement GI soft to palpation Inspection: incision intact Bladder / Kidney Exam: bladder normal to palpation Uterus Palpation: uterus fundus Extremity normal to inspection and full ROM Psych mental status grossly normal, thought process normal and cooperative Weight / BMI Weight Weight: 173 lb 11.588 oz Body Mass Index (BMI) 33.9 ABG / Lab / Microbiology Data 03/09/24 09:45 D/C Instructions Discharge Diet: No restrictions May shower in (days): 0 May resume sexual activity in: 4-6 weeks Weight Bearing Status: Full weight bearing Call your doctor if your incision/area has: Continuous Slow Oozing, Sudden Increased Bleeding, Increased Pain/ Swelling, Increased Redness and Foul Smelling Discharge Call your doctor if you observe: Fever of 101 or Higher and Using more than 1 pad per hour (for 2 hours) Suture Line Care: Avoid Pulling/Pushing and Avoid Pinching/Bending Cleanse incision/area with: Soap & Water and Keep Dressing Clean & Dry Please Follow Up With: Kristi Oseguera MD When: Call [phone] to make an appointment with your doctor in 6 weeks. If you had elevated blood pressure or 4th degree laceration, you will need to be seen in 2 weeks. Meaningful Use Info Meaningful Use Meaningful Use Diagnoses (Choose all that apply): None applicable Ischemic Stroke Statin Dosing Therapy Reference: STATIN DOSE THERAPY REFERENCE: * Patients > 75 years receive moderate or high dose statin therapy. * Patients 75 years or YOUNGER should receive HIGH intensity statin dose unless contraindicated. You will be required to document reason for non-treatment if statin daily dose does not meet guidelines. HIGH DOSE STATIN THERAPY DAILY Atorvastatin > than or = to 40 mg Rosuvastatin > than or = to 20 mg Amlodipine + Atorvastatin > than or = to 2.5/40 mg Ezetimibe + Simvastatin 10/80 mg Simvastatin 80mg Discharge Plan Admission Admit Date/Time: 03/09/24 09:48 Attending Provider: Kristi Oseguera Primary Care Provider: Care Physician,Yolanda Primary Discharge Orders/Prescriptions Prescriptions: No Action PNV-DHA 27 mg iron-1 mg -300 mg capsule 1 cap PO DAILY (DME) Blood Glucose Test Strip See Rx Instructions .MEDSUPPLY Qty: 120 5RF Rx Instructions: As directed-fasting & 2 hr post meals (DME) blood-glucose meter Misc See Rx Instructions miscellaneous .MEDSUPPLY Qty: 1 0RF Rx Instructions: As directed (DME) lancets Misc See Rx Instructions .MEDSUPPLY Qty: 200 5RF Rx Instructions: As directed-fasting & 2 hr post meals metformin 500 mg tablet 500 mg PO DAILY Qty: 14 0RF Referrals / Follow Up: Care Physician,No Primary [Primary Care Provider] - Disposition Disposition (needs filled in before D/C Order can be placed): Home, Self Care Charges/Coding Multi Select Codes Urinary/Genital Urinary/Genital CPT Codes: No Charge
[2024-03-11] MEDS: Naproxen 500 MG Tablet PO ×2 (08:29→18:32)
[2024-03-11 08:34] VITALS: PULSE 70; TEMP 36.6; O2SAT 98
[2024-03-11 08:35] VITALS: BP 120/75; PULSE 70; RESP 16; TEMP 36.6; O2SAT 98
[2024-03-11 08:36] VITALS: BP 120/75; PULSE 68
[2024-03-11 13:20] VITALS: BP 120/80; PULSE 68; PULSE 79; RESP 16; TEMP 36.5; O2SAT 98
== END 2024-03-11 20:05 | disposition home or self-care (01) | DRG 807 ==
LOC: WPOUT 10:15 → WP 10:15
PROVIDERS: Admitting Provider Obstetrics & Gynecology; Referring Provider Obstetrics & Gynecology; Visit Provider Obstetrics & Gynecology
DX: O24.429 Gestational diabetes mellitus in childbirth, unspecified control (principal); Z37.0 Single live birth; O43.193 Other malformation of placenta, third trimester; O70.1 Second degree perineal laceration during delivery; Z87.440 Personal history of urinary (tract) infections; Z82.79 Family history of other congenital malformations, deformations and chromosomal abnormalities; Z3A.38 38 weeks gestation of pregnancy
CPT/HCPCS: 59025; 59050; 82962; 85025; 86780; 86850; 86900; 86901; 99221; J7120; G0378

== ENCOUNTER → 2024-04-21 | Outpatient (CLI) | payer OTHER, SELFPAY ==
[2024-04-26 13:07] LABS: HPV APTIMA, High Risk Negative (Negative)
== END | disposition home or self-care (01) ==
LOC: LABSPEC 16:02
PROVIDERS: Referring Provider Obstetrics & Gynecology; Visit Provider Obstetrics & Gynecology
DX: Z12.4 Encounter for screening for malignant neoplasm of cervix (principal)
CPT/HCPCS: 87624; 88175; G0145

== ENCOUNTER → 2025-07-28 | Outpatient (CLI) | payer OTHER, SELFPAY ==
--- NOTE | 2025-07-28 15:30 | BI_ITS ---
EXAM: SCRN MAMM (CAD)W/MARIA ISABEL BILAT DATE: 07/28/2025 CLINICAL HISTORY: F, Age 35 y/o , SCREEN FOR BREAST CANCER TECHNIQUE: Procedure Code: [id number] Modality: MG Procedure: SCRN MAMM (CAD)W/MARIA ISABEL BILAT COMPARISON: This is a baseline study. FINDINGS: TISSUE DENSITY: The breasts are extremely dense, which lowers the sensitivity of mammography. Bilateral Breast Mammographic Findings: No significant masses, calcifications or other abnormalities are identified. No suspicious masses, areas of developing architectural distortion, or suspicious calcifications. BI/SCRN MAMM (CAD)W/MARIA ISABEL BILAT IMPRESSION: Unremarkable screening mammogram. OVERALL FINAL ASSESSMENT BI-RADS 1: NEGATIVE. RECOMMENDATION: Routine annual follow-up in 1 Year A letter with findings and recommendations will be mailed to the patient. Reading Location: [id number]
== END | disposition home or self-care (01) ==
LOC: OPBI 15:26
PROVIDERS: Referring Provider Nurse Practitioner Family; Visit Provider Nurse Practitioner Family
DX: Z12.31 Encounter for screening mammogram for malignant neoplasm of breast (principal)
CPT/HCPCS: 77063; 77067